=== PATIENT | female | born 1950 | race Caucasian/White ===

== ENCOUNTER 2017-06-22 04:41 | Inpatient (IN) | payer MEDICARE ==
[2017-06-22] MEDS ORDERED: NS 0.9% 1000 ML* 1,000 ML IV ONE (04:43)
[2017-06-22 05:17] LABS: Hematocrit 34 % (35-47); Hemoglobin 11.7 g/dl (12.0-16.0); Mean Corpuscular HGB Conc 35 g/dl (31-36); Mean Corpuscular Hemoglobin 31 pg (27-31); Mean Corpuscular Volume 89 fL (80-97); Mean Platelet Volume 12 um3 (7.4-10.4); Red Cell Distribution Width 13 % (10.5-15); White Blood Count 8.6 10^3/ul (3.5-10.8)
[2017-06-22 05:25] LABS: ALT 52 U/L (7-52); AST 42 U/L (13-39); Albumin 4.1 g/dL (3.2-5.2); Alkaline Phosphatase 337 U/L (34-104); Anion Gap 7 mmol/L (2-11); Blood Urea Nitrogen 28 mg/dL (6-24); CO2 Carbon Dioxide 32 mmol/L (22-32); Calcium 11.3 mg/dL (8.6-10.3); Chloride 94 mmol/L (101-111); Cholesterol 278 mg/dL; EGFR African American 62.8 (>60); EGFR Non-African American 48.8 (>60); Globulin 3.1 g/dL (2-4); Glucose 297 mg/dL (70-100); LDL Cholesterol 159 mg/dL; Potassium 4.5 mmol/L (3.5-5.0); Sodium 133 mmol/L (133-145); Total Protein 7.2 g/dL (6.4-8.9); Triglycerides 110 mg/dL
[2017-06-22 05:27] LABS: Troponin I 0.01 ng/mL (<0.04)
[2017-06-22] MEDS ORDERED: Labetalol IV* 5 MG/ML 20 ML VIAL IV PUSH ONE (05:45)
[2017-06-22] MEDS ORDERED: Dextrose 50% Syringe 50 ML* 25 GM/50 ML SYRINGE IV PUSH PRN (06:05)
--- NOTE | 2017-06-22 06:36 | ED ---
Kory Sequeira SooYoung, scribed for Raymundo Stevens MD on 06/22/17 at 0444 . Neurological HPI - HPI Summary HPI Summary: A 67 y/o F BIBA presents to ED with possible CVA. Last known normal according to pt is 0330. Last known nml per is yesterday at 2030. Pt states she went to use the bathroom at 0330, and she was on the commode straining to go, when she suddenly had L-sided weakness. Associated sx: slurred speech. Denies SERRA. PMHx: CVA with R sided deficits approx 4 years ago. Denies being on blood thinners. Per EMS, pt's blood sugars was 227. - History of Current Complaint Stated Complaint: STROKE LIKE SYMPTOMS Hx Obtained From: Patient, EMS Onset/Duration: Sudden Onset, Still Present Timing: Constant Current Severity: Moderate TPA Considered: Yes - but not a candidate - Allergy/Home Medications Allergies/Adverse Reactions: Allergies Allergy/AdvReac Type Severity Reaction Status Date / Time No Known Allergies Allergy Verified 06/22/17 06:08 PMH/Surg Hx/FS Hx/Imm Hx Previously Healthy: No Endocrine/Hematology History: Reports: Hx Diabetes Cardiovascular History: Reports: Hx Hypertension - ON MEDS GI History: Reports: Hx Gastroesophageal Reflux Disease, Other GI Disorders - HYPER PARATHYROIDISM History: Reports: Hx Kidney Stones - 6-7 YRS AGO Sensory History: Reports: Hx Cataracts - BILAT, Hx Contacts or Glasses, Hx Hearing Aid - DOES NOT USE Opthamlomology History: Reports: Hx Cataracts - BILAT, Hx Contacts or Glasses - Surgical History Surgery Procedure, Year, and Place: LITHOTRIPSY 6-7YRS AGO [place]. TONSILLECTOMY A CHILD. HYSTERECTOMY AT AGE 32 [place] Hx Anesthesia Reactions: No - Family History Known Family History: Positive: Other - neg: anaesthesia reaction - Social History Occupation: Retired Lives: With Family Alcohol Use: None Hx Substance Use: No Substance Use Type: Reports: None Hx Tobacco Use: No Smoking Status (MU): Never Smoked Tobacco Review of Systems Positive: Weakness, Slurred Speech. Negative: Headache All Other Systems Reviewed And Are Negative: Yes Physical Exam - Summary Physical Exam Summary: The patient is well-nourished in no acute distress and in no acute pain. The skin is warm and dry and skin color reflects adequate perfusion. HEENT: The head is normocephalic and atraumatic. No facial droop. The pupils are equal and reactive. EOMI. The conjunctivae are clear and without drainage. Nares are patent and without drainage. Mouth reveals moist mucous membranes and the throat is without erythema and exudate. The external ears are intact. The ear canals are patent and without drainage. The tympanic membranes are intact. Neck is supple with full range of motion and non-tender. There are no carotid bruits. There is no neck vein distension. Respiratory: Chest is non-tender. Lungs are clear to auscultation and breath sounds are symmetrical and equal. Cardiovascular: Hear is regular rate and rhythm. There is no murmur or rub auscultated. There is no peripheral edema and pulses are symmetrical and equal. Abdomen: The abdomen is soft and non-tender. There are normal bowel sounds heard in all four quadrants and there is no organomegaly palpated. Musculoskeletal: There is no back pain noted. Extremities are non-tender with full range of motion. There is good capillary refill. There is no peripheral edema or calf tenderness elicited. Neurological: Patient is alert and oriented to person, place and time. The patient has symmetrical motor strength in all four extremities. Cranial nerves are grossly intact. Deep tendon reflexes are symmetrical and equal in all four extremities. No pronator drift in UE. Pt had trouble with finger to nose on LUE. No pronator drift in LE. No trouble with heel to clark in either leg. More weakness in LLE compared to RLE. More weakness in LUE compared to RUE. Positive Babinski's sign. Visual acuity is intact. Psychiatric: The patient has an appropriate affect and does not exhibit any anxiety or depression. Triage Information Reviewed: Yes Vital Signs On Initial Exam: Initial Vitals Temp Pulse Resp BP Pulse Ox 98.5 F 87 16 186/82 98 06/22/17 04:41 06/22/17 04:41 06/22/17 04:41 06/22/17 04:41 06/22/17 04:41 Vital Signs Reviewed: Yes - William Coma Scale Glascow Coma Scale Comments: 15 Diagnostics - Vital Signs Vital Signs Temp Pulse Resp BP Pulse Ox 06/22/17 05:37 89 20 179/89 95 06/22/17 05:15 98.5 F 87 16 186/82 98 06/22/17 05:07 85 19 167/85 92 06/22/17 05:06 82 20 92 06/22/17 04:41 98.5 F 87 16 98 - Laboratory Lab Results: Lab Results 06/22/17 06/22/17 06/22/17 Range/Units 04:57 04:58 04:58 WBC 8.6 (3.5-10.8) 10^3/ul RBC 3.80 L (4.0-5.4) 10^6/ul Hgb 11.7 L (12.0-16.0) g/dl Hct 34 L (35-47) % MCV 89 (80-97) fL MCH 31 (27-31) pg MCHC 35 (31-36) g/dl RDW 13 (10.5-15) % Plt Count 216 (150-450) 10^3/ul MPV 12 H (7.4-10.4) um3 Neut % (Auto) 67.8 (38-83) % Lymph % (Auto) 23.5 L (25-47) % [place] % (Auto) 6.7 (1-9) % Eos % (Auto) 1.1 (0-6) % Baso % (Auto) 0.9 (0-2) % Absolute Neuts (auto) 5.8 (1.5-7.7) 10^3/ul Absolute Lymphs (auto) 2.0 (1.0-4.8) 10^3/ul Absolute Monos (auto) 0.6 (0-0.8) 10^3/ul Absolute Eos (auto) 0.1 (0-0.6) 10^3/ul Absolute Basos (auto) 0.1 (0-0.2) 10^3/ul Absolute Nucleated RBC 0.01 10^3/ul Nucleated RBC % 0.1 INR (Anticoag Therapy) 0.86 L (0.89-1.11) APTT 29.9 (26.0-36.3) seconds Sodium (133-145) mmol/L Potassium (3.5-5.0) mmol/L Chloride (101-111) mmol/L Carbon Dioxide (22-32) mmol/L Anion Gap (2-11) mmol/L BUN (6-24) mg/dL Creatinine (0.51-0.95) mg/dL Est GFR ( Amer) (>60) Est GFR (Non-Af Amer) (>60) BUN/Creatinine Ratio (8-20) Glucose (70-100) mg/dL POC Glucose (mg/dL) 270 H (70-100) mg/dL Lactic Acid (0.5-2.0) mmol/L Calcium (8.6-10.3) mg/dL Total Bilirubin (0.2-1.0) mg/dL AST (13-39) U/L ALT (7-52) U/L Alkaline Phosphatase (34-104) U/L Troponin I (<0.04) ng/mL Total Protein (6.4-8.9) g/dL Albumin (3.2-5.2) g/dL Globulin (2-4) g/dL Albumin/Globulin Ratio (1-3) Triglycerides mg/dL Cholesterol mg/dL LDL Cholesterol mg/dL HDL Cholesterol mg/dL Blood Type Antibody Screen 06/22/17 06/22/17 06/22/17 Range/Units 04:58 04:58 04:58 WBC (3.5-10.8) 10^3/ul RBC (4.0-5.4) 10^6/ul Hgb (12.0-16.0) g/dl Hct (35-47) % MCV (80-97) fL MCH (27-31) pg MCHC (31-36) g/dl RDW (10.5-15) % Plt Count (150-450) 10^3/ul MPV (7.4-10.4) um3 Neut % (Auto) (38-83) % Lymph % (Auto) (25-47) % [place] % (Auto) (1-9) % Eos % (Auto) (0-6) % Baso % (Auto) (0-2) % Absolute Neuts (auto) (1.5-7.7) 10^3/ul Absolute Lymphs (auto) (1.0-4.8) 10^3/ul Absolute Monos (auto) (0-0.8) 10^3/ul Absolute Eos (auto) (0-0.6) 10^3/ul Absolute Basos (auto) (0-0.2) 10^3/ul Absolute Nucleated RBC 10^3/ul Nucleated RBC % INR (Anticoag Therapy) (0.89-1.11) APTT (26.0-36.3) seconds Sodium 133 (133-145) mmol/L Potassium 4.5 (3.5-5.0) mmol/L Chloride 94 L (101-111) mmol/L Carbon Dioxide 32 (22-32) mmol/L Anion Gap 7 (2-11) mmol/L BUN 28 H (6-24) mg/dL Creatinine 1.12 H (0.51-0.95) mg/dL Est GFR ( Amer) 62.8 (>60) Est GFR (Non-Af Amer) 48.8 (>60) BUN/Creatinine Ratio 25.0 H (8-20) Glucose 297 H (70-100) mg/dL POC Glucose (mg/dL) (70-100) mg/dL Lactic Acid 1.3 (0.5-2.0) mmol/L Calcium 11.3 H (8.6-10.3) mg/dL Total Bilirubin 0.40 (0.2-1.0) mg/dL AST 42 H (13-39) U/L ALT 52 (7-52) U/L Alkaline Phosphatase 337 H (34-104) U/L Troponin I 0.01 (<0.04) ng/mL Total Protein 7.2 (6.4-8.9) g/dL Albumin 4.1 (3.2-5.2) g/dL Globulin 3.1 (2-4) g/dL Albumin/Globulin Ratio 1.3 (1-3) Triglycerides 110 mg/dL Cholesterol 278 mg/dL LDL Cholesterol 159 mg/dL HDL Cholesterol 97.0 mg/dL Blood Type O Positive Antibody Screen Negative Result Diagrams: 06/22/17 04:58 06/22/17 04:58 Lab Statement: Any lab studies that have been ordered have been reviewed, and results considered in the medical decision making process. - Radiology CXR Xray Interpretation: No Acute Changes - No PNA, no plueral , no PTX, no acute dz. Radiology Interpretation Completed By: ED Physician - CT BRAIN CT CT Interpretation: Positive (See Comments) - pending, see [facility] for full report CT Interpretation Completed By: Radiologist - EKG 0501 Cardiac Rate: NL - 79 bpm EKG Rhythm: Sinus Rhythm Ectopy: PACs - L axis EKG Interpretation: RBBB, no afib NIH Scale - NIH Scale Level of Consciousness: Alert/Keenly Responsive Ask Patient the Month and His/Her Age: Both Correct Ask Pt to Open/Close Eyes and Black Top Roller/Release Non-Paretic Hand: Both Correctly Best Gaze (Only Horizontal Eye Movement): Normal Visual Field Testing: No Visual Loss Facial Paresis-Pt to Smile & Close Eyes or Grimace Symmetry: Normal/Symmetrical Motor Function - Right Arm: No Drift-Holds 10 Seconds Motor Function - Left Arm: No Drift-Holds 10 Seconds Motor Function - Right Leg: No Drift-Holds 10 Seconds Motor Function - Left Leg: No Drift-Holds 10 Seconds Limb Ataxia-Must be out of Proportion to Weakness Present: Present in One Limb Sensory (Use Pinprick to Test Arms/Legs/Trunk/Face): Normal Best Language (Describe Picture, Name Items): Some Loss Dysarthria (Read Several Words): Slurs Some Words Extinction and Inattention: No Abnormality Total Score: 3 Course/Dx - Course Course Of Treatment: Pt is a 67 y/o F BIBA presenting with possible CVA. Last known normal according to pt is 0330. Last known nml per is yesterday at 2030. Pt states she went to use the bathroom at 0330, and she was on the commode straining to go, when she suddenly had L-sided weakness. Associated sx: slurred speech. Denies SERRA. PMHx: CVA with R-sided deficits approx 4 years ago. Denies being on blood thinners. Per EMS, pt's blood sugars was 227. EKG is NSR at 79 with RBBB, L axis, no afib, and PACs. - Differential Dx Differential Diagnoses Neuro: Positive: Cerebrovascular Accident, Dysrhythmia, Hypertension, Hypoglycemia, Intracranial Bleed, Other - renal insufficiency - Diagnoses Provider Diagnoses: Intracerebral bleed, Hypertension During the Visit The Following Alert/Code Occurred: Emily Arredondo - called at 0440 - Critical Care Time Critical Care Time: 30-74 min - 45 minutes Discharge - Discharge Plan Condition: Stable Disposition: ADMITTED TO [facility] Consult Consult: 0500: Contacted [facility] Will contact the Neurologist. Initiating telestroke. 0518: Using Telemed Does not think pt warrants transfer. Contact hospitalist for admission. 0548: Consult with Dr. Long, hospitalist Will accept pt for admission 0632: Spoke with [facility] transfer [place] Confirmed that pt will remain at [facility] for time. The documentation as recorded by the Kory vazquez SooYoung accurately reflects the service I personally performed and the decisions made by me, Raymundo Stevens MD.
[2017-06-22] MEDS ORDERED: Labetalol IV* 5 MG/ML 20 ML VIAL IV PUSH PRN ×4 (06:51→08:57)
--- NOTE | 2017-06-22 07:32 | RAD ---
INDICATION: Neurologic change. Code chacon COMPARISON: None TECHNIQUE: Noncontrast axial source images were acquired from the skull base to the vertex. FINDINGS: Ventricles/sulci: There is minor age-related cortical atrophy with compensatory dilatation of the CSF spaces. The basilar cisterns are widely patent. Brain parenchyma: There is a 1.3 x 1.3 cm focus of intraparenchymal hemorrhage in the right thalamus. This is likely secondary to a hypertensive hemorrhage although underlying hemorrhagic mass is not excluded. There is periventricular and subcortical white matter change compatible with chronic ischemia. Intracranial hemorrhage: As above, right colonic hemorrhage.. Extra-axial spaces: There are no abnormal extra axial fluid collections or evidence of extra-axial mass. Calvarium: There is no calvarial fracture or other calvarial abnormality. Scalp: There is no evidence of scalp or extracalvarial soft tissue abnormality. Paranasal sinuses/mastoid: Focal mucosal thickening left maxillary antrum. Other: None. IMPRESSION: 1.3 cm FOCUS of right thalamic hemorrhage.
--- NOTE | 2017-06-22 07:37 | RAD ---
INDICATION: Code chacon COMPARISON: None TECHNIQUE: An AP portable view obtained at 0508 hours is submitted. FINDINGS: Bones/Soft Tissues: There are no acute bony findings. Cardiomediastinal: The cardiomediastinal silhouette is normal. Lungs: There are no infiltrates. Pleura: There are no pleural effusions. Other: None IMPRESSION: NEGATIVE EXAMINATION.
[2017-06-22] MEDS ORDERED: Labetalol IV* 5 MG/ML 20 ML VIAL ONE (07:55)
[2017-06-22 08:06] LABS: Calcium (PTH Intact) 11.3 mg/dL (8.6-10.3)
--- NOTE | 2017-06-22 08:06 | PN ---
Subjective Date of Service: 06/22/17 Interval History: No new c/o. Patient and state her Left side was weak when she fell off the toilet at 3 AM today and couldn't get up, but she feels and looks stronger now. No head trauma, no headach. Some shaking when fell off the toilet. Objective Active Medications: Dextrose (D50w Syringe 50 Ml*) 12.5 gm IV PUSH .FOR FS < 60 - SS PRN PRN Reason: FS < 60 Sodium Chloride (Ns 0.9% 1000 Ml*) 1,000 mls @ 60 mls/hr IV .PER RATE GLORIA Insulin Human Lispro (Humalog*) 0 units SUBCUT Q6HR GLORIA PRN Reason: Protocol Labetalol HCl (Trandate Iv*) 10 mg IV PUSH Q3H PRN PRN Reason: BLOOD PRESSURE Vital Signs 06/22/17 06/22/17 06/22/17 06:10 06:15 06:22 Temperature Pulse Rate 74 73 72 Respiratory 20 15 16 Rate Blood Pressure 169/155 144/72 140/73 (mmHg) O2 Sat by Pulse 93 96 94 Oximetry 06/22/17 06/22/17 06/22/17 06:30 06:43 06:45 Temperature 98.8 F Pulse Rate 72 70 Respiratory 16 16 Rate Blood Pressure 131/87 160/95 163/99 (mmHg) O2 Sat by Pulse 98 100 Oximetry 06/22/17 06/22/17 06/22/17 06:59 07:03 07:07 Temperature 97.4 F Pulse Rate 72 71 Respiratory 18 19 28 Rate Blood Pressure 132/87 160/95 (mmHg) O2 Sat by Pulse 100 Oximetry Oxygen Devices in Use Now: None Appearance: Alert, partly up in ICU bed. In fair spirits. Looks comfortable. Eyes: No Scleral Icterus Ears/Nose/Mouth/Throat: Clear Oropharnyx, Mucous Membranes Moist Neck: NL Appearance and Movements; NL JVP, No Thyroid Enlargement, Masses Respiratory: Symmetrical Chest Expansion and Respiratory Effort, Clear to Auscultation, Clear to Percussion Cardiovascular: NL Sounds; No Murmurs; No JVD, RRR, No Edema, - Abdominal: NL Sounds; No Tenderness; No Distention, No Hepatosplenomegaly, - Extremities: No Edema, No Clubbing, Cyanosis, - Skin: No Rash or Ulcers, No Nodules or Sclerosis, - Neurological: Alert and Oriented x 3, NL Sensation - Senior Sales Manager 4+/5 BL, foot dorsiflexion 4+/5 BL. No tremor. Speech clear and fluent. Result Diagrams: 06/22/17 04:58 06/22/17 04:58 Additional Lab and Data: Lab Results 06/22/17 06/22/17 06/22/17 Range/Units 04:57 04:58 04:58 WBC 8.6 (3.5-10.8) 10^3/ul RBC 3.80 L (4.0-5.4) 10^6/ul Hgb 11.7 L (12.0-16.0) g/dl Hct 34 L (35-47) % MCV 89 (80-97) fL MCH 31 (27-31) pg MCHC 35 (31-36) g/dl RDW 13 (10.5-15) % Plt Count 216 (150-450) 10^3/ul MPV 12 H (7.4-10.4) um3 Neut % (Auto) 67.8 (38-83) % Lymph % (Auto) 23.5 L (25-47) % [place] % (Auto) 6.7 (1-9) % Eos % (Auto) 1.1 (0-6) % Baso % (Auto) 0.9 (0-2) % Absolute Neuts (auto) 5.8 (1.5-7.7) 10^3/ul Absolute Lymphs (auto) 2.0 (1.0-4.8) 10^3/ul Absolute Monos (auto) 0.6 (0-0.8) 10^3/ul Absolute Eos (auto) 0.1 (0-0.6) 10^3/ul Absolute Basos (auto) 0.1 (0-0.2) 10^3/ul Absolute Nucleated RBC 0.01 10^3/ul Nucleated RBC % 0.1 INR (Anticoag Therapy) 0.86 L (0.89-1.11) APTT 29.9 (26.0-36.3) seconds Sodium (133-145) mmol/L Potassium (3.5-5.0) mmol/L Chloride (101-111) mmol/L Carbon Dioxide (22-32) mmol/L Anion Gap (2-11) mmol/L BUN (6-24) mg/dL Creatinine (0.51-0.95) mg/dL Est GFR ( Amer) (>60) Est GFR (Non-Af Amer) (>60) BUN/Creatinine Ratio (8-20) Glucose (70-100) mg/dL POC Glucose (mg/dL) 270 H (70-100) mg/dL Lactic Acid (0.5-2.0) mmol/L Calcium (8.6-10.3) mg/dL Total Bilirubin (0.2-1.0) mg/dL AST (13-39) U/L ALT (7-52) U/L Alkaline Phosphatase (34-104) U/L Troponin I (<0.04) ng/mL Total Protein (6.4-8.9) g/dL Albumin (3.2-5.2) g/dL Globulin (2-4) g/dL Albumin/Globulin Ratio (1-3) Triglycerides mg/dL Cholesterol mg/dL LDL Cholesterol mg/dL HDL Cholesterol mg/dL Blood Type Antibody Screen 06/22/17 06/22/17 06/22/17 Range/Units 04:58 04:58 04:58 WBC (3.5-10.8) 10^3/ul RBC (4.0-5.4) 10^6/ul Hgb (12.0-16.0) g/dl Hct (35-47) % MCV (80-97) fL MCH (27-31) pg MCHC (31-36) g/dl RDW (10.5-15) % Plt Count (150-450) 10^3/ul MPV (7.4-10.4) um3 Neut % (Auto) (38-83) % Lymph % (Auto) (25-47) % [place] % (Auto) (1-9) % Eos % (Auto) (0-6) % Baso % (Auto) (0-2) % Absolute Neuts (auto) (1.5-7.7) 10^3/ul Absolute Lymphs (auto) (1.0-4.8) 10^3/ul Absolute Monos (auto) (0-0.8) 10^3/ul Absolute Eos (auto) (0-0.6) 10^3/ul Absolute Basos (auto) (0-0.2) 10^3/ul Absolute Nucleated RBC 10^3/ul Nucleated RBC % INR (Anticoag Therapy) (0.89-1.11) APTT (26.0-36.3) seconds Sodium 133 (133-145) mmol/L Potassium 4.5 (3.5-5.0) mmol/L Chloride 94 L (101-111) mmol/L Carbon Dioxide 32 (22-32) mmol/L Anion Gap 7 (2-11) mmol/L BUN 28 H (6-24) mg/dL Creatinine 1.12 H (0.51-0.95) mg/dL Est GFR ( Amer) 62.8 (>60) Est GFR (Non-Af Amer) 48.8 (>60) BUN/Creatinine Ratio 25.0 H (8-20) Glucose 297 H (70-100) mg/dL POC Glucose (mg/dL) (70-100) mg/dL Lactic Acid 1.3 (0.5-2.0) mmol/L Calcium 11.3 H (8.6-10.3) mg/dL Total Bilirubin 0.40 (0.2-1.0) mg/dL AST 42 H (13-39) U/L ALT 52 (7-52) U/L Alkaline Phosphatase 337 H (34-104) U/L Troponin I 0.01 (<0.04) ng/mL Total Protein 7.2 (6.4-8.9) g/dL Albumin 4.1 (3.2-5.2) g/dL Globulin 3.1 (2-4) g/dL Albumin/Globulin Ratio 1.3 (1-3) Triglycerides 110 mg/dL Cholesterol 278 mg/dL LDL Cholesterol 159 mg/dL HDL Cholesterol 97.0 mg/dL Blood Type O Positive Antibody Screen Negative Assess/Plan/Problems-Billing Assessment: - Patient Problems (1) Hemorrhagic stroke Current Visit: Yes Status: Acute Code(s): I61.9 - NONTRAUMATIC INTRACEREBRAL HEMORRHAGE, UNSPECIFIED SNOMED Code(s): 151389529 Comment: R ICH hemorrhage. Old L cerebral CVA by hx. Uses cane at home. OT /PT. Nurse swallow eval. I spoke with Dr. Nicole about pt 06/22. Start ASA Day [address] Nicole. Normalize BP as goal. Repeat CT brain 06/23. (2) Diabetes Current Visit: Yes Status: Acute Code(s): E11.9 - TYPE 2 DIABETES MELLITUS WITHOUT COMPLICATIONS SNOMED Code(s): 91811607 Comment: Start glipizide. Continue Lispro by SS. Cons carb diet if no intervention planned. May add metformin later. (3) HTN (hypertension) Current Visit: Yes Status: Acute Code(s): I10 - ESSENTIAL (PRIMARY) HYPERTENSION SNOMED Code(s): 97257649 Comment: IV labetalol PRN systolic >140. Start lisinopril soon. (4) Constipation Current Visit: Yes Status: Acute Code(s): K59.00 - CONSTIPATION, UNSPECIFIED SNOMED Code(s): 50917328 Comment: MOM 60 ml 06/22, start PEG 17 gm hs 06/22.
[2017-06-22] MEDS ORDERED: Magnesium Hydroxide LIQ* 30 ML UDC PO ONE (09:00)
[2017-06-22] MEDS ORDERED: Insulin LISPRO* 1 UNITS UNIT SUBCUT ONE (09:40)
[2017-06-22] MEDS: Insulin LISPRO* 1 UNITS UNIT SUBCUT SCH ×4 (09:42→22:48)
[2017-06-22] MEDS: Lisinopril TAB* 5 MG PO SCH (09:43)
[2017-06-22] MEDS ORDERED: Iodixanol* (CONTRAST) 320 MG/ML 100 ML SDV IV ONE (10:31)
--- NOTE | 2017-06-22 10:34 | HP ---
CC: Emilia Urbina, ORTHODONTIC ASSISTANT, in [place]; Dr. Nicole, Neurology, [place] ADMISSION HISTORY AND PHYSICAL: DATE OF ADMISSION: 06/22/17 CHIEF COMPLAINT: Left-sided weakness. HISTORY OF PRESENT ILLNESS: Ms. Cortes is a 67-year-old woman with history of stroke with right-sided weakness, who got to the bathroom at night around 3:30 a.m. and noticed the loss of control of her left arm. This seemed to worsen while she was in the bathroom and she slipped off the toilet and fell on the floor. She was able to summon her who brought her back to bed, partly carrying her and partly helping her. She now states that mainly her left arm is weak and that her speech is not normal, but denies left leg weakness. She denies any headache. She says she has no word finding difficulties, but she just has trouble forming words in her mouth. Her agrees that her speech is much slower and less distinct than usual. She also has some numbness on the left side of her body. The patient was brought from [facility] to [facility] on account of suspicion of stroke. She was seen by Teleneurology, who reviewed a CT scan of the brain that showed 2 cm hemorrhagic right thalamic lesion. She was advised to be admitted to the hospital and I was asked to see the patient about this. PAST MEDICAL HISTORY: The patient has history of a left thalamic stroke with right- sided weakness in 2012. She also has macular degeneration, diabetes, with retinopathy, and hypertension. She states she does not take any of her blood pressure, diabetes or other medications, but she cannot say why. PAST SURGICAL HISTORY: Hysterectomy in the past, cataracts bilaterally, and tonsillectomy. MEDICATIONS ON ADMISSION: Her previous medication list included: 1. Aggrenox twice a day. 2. Calcium once a day. 3. Zetia 10 mg daily. 4. Gemfibrozil 600 mg b.i.d. 5. Hydralazine 25 mg p.o. 4 times a day. 6. Metformin 850 t.i.d. 7. Multivitamin. 8. Omeprazole 20 mg p.o. daily, but she states she is not taking any of her medications. ALLERGIES: None. FAMILY HISTORY: Family history is notable for father of CHF, mother of head injury. Her sister is alive and has Parkinson's disease. 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 She is , she has 1 adopted child. She never smoked, she does not drink alcohol or use any recreational drugs. REVIEW OF SYSTEMS: The patient denies any fevers, weight loss or anorexia. The patient denies any chest pain or palpitations. The patient denies any cough, hemoptysis or shortness of breath. The patient denies any nausea, vomiting, diarrhea, constipation or abdominal pain. Remainder of her 14-point review of systems is negative other than that mentioned in the HPI. PHYSICAL EXAMINATION GENERAL: She is alert, in no acute distress. VITAL SIGNS: Temperature is 36.9, pulse 89, respirations 20, blood pressure 179 /89, O2 sat is 95%. HEENT: Head is normocephalic, atraumatic. Sclerae anicteric. Pupils are equal , round and reactive to light and accommodation. Oropharynx is moist, no lesions. NECK: No carotid bruit. No JVD. No thyromegaly. LUNGS: Clear to auscultation and percussion bilaterally. HEART: Regular rate and rhythm, without murmurs or gallops. ABDOMEN: Soft, nontender. Positive bowel sounds. No hepatosplenomegaly. EXTREMITIES: No peripheral edema. NEUROLOGIC: Cranial nerves II through XII are intact. Her speech is slow and she is mildly dysarthric. Her deep tendon reflexes are 1+ and symmetric in the upper and lower extremities. She has weakness in her left arm, rated at 4+/5, and she has pronator drift on the left. She does not have left-sided neglect. Sensation is intact to light touch. She is alert and oriented x3. SKIN: No rashes. No lesions. LABORATORY DATA: Sodium 133, potassium 4.5, chloride 94, bicarbonate 32, BUN 28, creatinine 1.12, glucose 297, calcium 11.3. Lactic acid 1.3. Albumin 4.1, AST 42, ALT 52, bilirubin 0.4. Troponin 0.01. INR 0.86, PTT 29.9. White count 8.6, hemoglobin 11.7, hematocrit 34%, and platelets are 216. EKG shows normal sinus rhythm, leftward axis, incomplete right bundle branch block with left anterior fascicular block. No ischemic ST or T-wave changes. Chest x-ray is negative for infiltrates or effusions. Head CT shows 2 cm hemorrhagic infarct in the right thalamus. ASSESSMENT AND PLAN: A 67-year-old woman with right thalamic hemorrhagic stroke. The patient has risk of progression of this hemorrhage with more severe deficits. At this time, she will be admitted to the intensive care unit. We will attempt to control her blood pressure with IV labetalol on a p.r.n. basis, which we can convert to drip if necessary. We will also continue nicardipine or IV hydralazine if the blood pressure control is not obtainable. The patient will have repeat head CT in 6 hours and we will consult with Dr. Nicole of neurology for further management. I am not restarting antiplatelet or blood pressure medications as she has not been taking them at home and she certainly does not need to be on Aggrenox at this time. For diabetes, we will start her on q.6 hour fingersticks because we are keeping her n.p.o. until she has swallowing evaluation. For her hypercalcemia, this appears to be a new finding. This could represent hyperparathyroidism or malignancy. The patient will have PTH and vitamin D to assess calcium further, and I will repeat the calcium with ionized calcium tomorrow. Code status is full. DVT prophylaxis will be with sequential compression devices only due to her hemorrhagic stroke. She is a high risk of DVT, but SCDs are the only thing that are safe for her. [id number]/[facility] #: [id number] MTDD
[2017-06-22] MEDS: glipiZIDE TAB* 5 MG PO SCH (11:15)
--- NOTE | 2017-06-22 11:32 | RAD ---
INDICATION: Intracerebral hemorrhage COMPARISON: CT brain same date TECHNIQUE: Axial source images were acquired with coronal and sagittal reconstructions. CT angiographic technique was utilized with injection of 80 mL Visipaque 320. FINDINGS: Aortic arch: There are no CT angiogram abnormalities of the arch or the great vessels arising from the arch. Right carotid: The right common carotid artery is widely patent. There is moderate calcific plaque at the bifurcation with a 70% diameter stenosis. The remaining extracranial portions of the internal carotid artery, carotid artery at the skull base, carotid siphon, and carotid termination otherwise are widely patent. There are mild intimal calcifications of the carotids siphon. Left carotid:The common carotid artery, carotid bifurcation, extracranial portions of the internal carotid artery, carotid artery at the skull base, carotid siphon, and carotid termination appear normal. Right middle and anterior cerebral arteries: There are no CT angiographic abnormalities of the middle or anterior cerebral arteries. Left middle and anterior cerebral arteries: There are no CT angiographic abnormalities of the middle or anterior cerebral arteries Right vertebral: The CT angiographic appearance of the vertebral artery is normal. Left vertebral: The CT angiographic appearance of the vertebral artery is normal. Basilar artery: The basilar artery and basilar tip appear normal. Posterior cerebral arteries: The distal distribution of the right and left posterior cerebral arteries is normal. [place] of [place]: The CT angiographic appearance of the [place] of [place] is normal. Source images show no evidence of mass or adenopathy within the neck. There is a 1.3 cm focus of right thalamic hemorrhage with a small amount of adjacent edema. There is no abnormal parenchymal enhancement. Or evidence of adjacent abnormal vascularity. There is bilateral maxillary antral sinus disease IMPRESSION: 1. 70% diameter stenosis right internal carotid artery. 2. No evidence of aneurysm, vascular formation, or abnormal enhancement in the immediate period following right thalamic hemorrhage. 3. 1.3 cm focus of right thalamic hemorrhage ,CPT II Codes: 3100F RS
--- NOTE | 2017-06-22 11:40 | CONS ---
CONSULTATION REPORT: DATE OF CONSULT: 06/22/17 LOCATION: The patient is in bed 9 in the ICU. REASON FOR CONSULTATION: Left-sided weakness and intracerebral hemorrhage. HISTORY OF PRESENT ILLNESS: Ms. Cortes is a 67-year-old female with multiple stroke risk factors including a prior stroke 4 years ago with some residual right-sided weakness, hypertension, hyperlipidemia, diabetes who by her own admission has been not taking her medications for sometime. She was put on Aggrenox after her last stroke, but stopped talking it because the "pills were too big." She denies any current dysphagia. This morning at around 3 a.m. she had to go to the bathroom, she was sitting on the toilet straining, when she suddenly felt "weird." She subsequently fell off the toilet, but did not hit her head, did not lose consciousness. She denies any significant headache, nausea, vomiting, vision changes. She does note some constipation, but otherwise is having no pain. At that time, she noted that she was having some left-sided weakness and some numbness in her left hand. She subsequently was brought to the ER and a CT scan was done, which showed a 1.3 cm right thalamic hemorrhage and she was admitted to the ICU for further workup. She denies any history of smoking. She rarely drinks. She denies any right-sided symptoms, although she does have some baseline right weakness. She has had no problems expressing herself, although she does have some slurred speech which her states is new for her from her baseline. She notes that she has not been taking her medications, but is unclear what her blood pressures are. I did speak with her primary physician this morning and she has been given labetalol x1 for elevated blood pressures. PAST MEDICAL HISTORY: As above. PAST SURGICAL HISTORY: As above. ALLERGIES: No known drug allergies on drug allergies. MEDICATIONS: Her medications currently include: 1. Glipizide 5 mg daily. 2. Insulin. 3. Labetalol 10 mg every 1 hour p.r.n. systolic blood pressure greater than 160. 4. Lisinopril 2.5 mg daily. 5. MiraLAX. 6. Normal saline. Her admission medications, she was not taking any, per her report. FAMILY HISTORY: No history of strokes or heart attacks. No history of early . SOCIAL HISTORY: As above. No tobacco. Rare alcohol use. Her does smoke, so she has secondary exposure. No drug use reported. REVIEW OF SYSTEMS: In 14-organ systems was done. She denies any headache, nausea, vomiting, diarrhea. She does endorse constipation. Denies any chest pain, shortness of breath, dyspnea on exertion. Denies any skin changes, rashes , or lesions. She does note some fatigue. Denies any fevers, chills. She denies any musculoskeletal aches or pains. Neuro pertinent positives are listed above. She denies any vision changes or eye pain. She denies any sore throat or swallowing issues. No recent infections. No genitourinary symptoms including dysuria, frequency, urgency. No depression or anxiety noted. Her review of systems is otherwise negative. PHYSICAL EXAM: Vital Signs: Blood pressure 163/99 to 132/87 to 160/95. General: She is a well nourished, well developed female, in no acute distress. She is lying in hospital bed. She is somewhat uncomfortable because she states that she is constipated. HEENT: She is normocephalic, atraumatic. Sclerae anicteric. Mucous membranes are moist. Oropharynx is clear. Nares patent. Neck: Supple. No thyromegaly. No carotid bruits. Chest: Clear to auscultation bilaterally. Cardiovascular: Regular rate and rhythm. Abdomen: Soft, nontender. Extremities: No clubbing, cyanosis, or edema. Neurologic Exam : She is awake, alert, oriented x3. Her speech is fluent and there is some mild dysarthria. She has difficulty with the "KA, TA, PA, LA" sounds. Cranial nerves II through XII are intact. Her visual roper are intact. Pupils are equal, round, and reactive. Face is symmetric. Sensation is intact. Her tongue is midline. Palate elevates symmetrically. Sternocleidomastoid and shoulder shrug are both normal. Extraocular muscles are intact. Her face is symmetric. Motor Exam: She spontaneously moves her all extremities antigravity. She does have some mild drift in the left upper extremity. No drift in the left lower extremity or right side. In general, she is 4+/5 throughout. She has some mild weakness in the right proximal arm. DTRs are 3+ on the right, 2+ on the left with withdrawal Babinski. Xljlzi-se-pdfc and rapid alternating movements are more difficult on the left, but no obvious ataxia. Hvcb-ah-bnom is same. She has a mild end point tremor bilaterally. Sensation she states is diminished by 10% to 15% in the left hand otherwise to light touch , pinprick. She has a some vibration and proprioception loss in her feet bilaterally and symmetric. Gait was not tested at this time and she feels unsteady and is currently in some discomfort because of her constipation. DIAGNOSTIC STUDIES/LAB DATA: Lab work includes a CBC with hemoglobin of 11.7, hematocrit of 34, lymphocytes are 23.5. INR of 0.86, PTT of 29.9. Complete metabolic panel significant for creatinine of 1.12, glucose of 297, calcium of 11.3, AST of 42, alkaline phosphatase of 337, vitamin D of 13.2. LDL of 159, HDL of 97, calcium of 11.3. IMAGING: As noted above. Chest x-ray shows negative exam. I did review the CT films as well. ASSESSMENT AND PLAN: Ms. Cortes is a 67-year-old female with multiple stroke risk factors, a history of stroke in the past with some residual right-sided weakness , presents to the hospital with acute onset of left-sided weakness, numbness in the hand. CT shows a 1.3 cm right thalamic hemorrhage. At this point, she is currently in the ICU. The plan is as follows: 1. Hold all aspirin or anticoagulants for at least 1 week after initial onset. 2. I would strive for a systolic blood pressure between 140 to 160 and diastolic blood pressure no greater than 95. Labetalol p.r.n. has been ordered. I will check some additional labs including TSH, free T4, homocysteine , KATHARINE to rule out reversible causes of stroke. 3. Her LDL is currently elevated, would consider statin on discharge to lower the HDL alf. At this point, I would not complicate the picture with the statin given her recent hemorrhage, but we can start simvastatin or Crestor on discharge. 4. She is currently awaiting a swallowing study. If that is negative, she can have diet advanced as tolerated. I do not see any evidence of dysphagia at this point. We can get speech therapy tomorrow. 5. Tight control of her diabetes during hospitalization, restart medications. 6. DVT prophylaxis with SCDs only. 7. I had a long discussion with the patient about the need to take her medications and for compliance. 8. MiraLAX for stool softener. She is suffering from constipation. We will watch her blood pressures with this and treat accordingly. I will continue to follow her closely. I would continue her monitoring in the ICU for now. We will plan to get a CT scan in the morning for follow up or if her condition should change. Thank you for the opportunity to participate in her care. [id number]/[facility] #: [id number] [place]
[2017-06-22 15:52] LABS: Free T4 1.12 ng/dL (0.61-1.12)
[2017-06-22 16:00] LABS: Folate > 20.00 ng/mL (>3.99)
[2017-06-22 16:01] LABS: Vitamin B12 259 pg/mL (180-914)
[2017-06-22] MEDS: Polyethylene Glycol 3350* 17 GM PACKET PO SCH (22:24)
[2017-06-22] MEDS: NS 0.9% 1000 ML* 1,000 ML IV SCH (22:26)
[2017-06-23 05:36] LABS: Hematocrit 28 % (35-47); Hemoglobin 9.6 g/dl (12.0-16.0); Mean Corpuscular HGB Conc 34 g/dl (31-36); Mean Corpuscular Hemoglobin 31 pg (27-31); Mean Corpuscular Volume 90 fL (80-97); Mean Platelet Volume 12 um3 (7.4-10.4); Red Blood Count 3.15 10^6/ul (4.0-5.4); Red Cell Distribution Width 13 % (10.5-15); White Blood Count 10.1 10^3/ul (3.5-10.8)
[2017-06-23 05:57] LABS: BUN/Creatinine Ratio 24.6 (8-20); EGFR African American 61.5 (>60); EGFR Non-African American 47.8 (>60)
[2017-06-23] MEDS ORDERED: Cyanocobalamin INJ * 1,000 MCG/ML VIAL 1 ML VIAL IM ONE (07:41)
[2017-06-23 08:10] LABS: TSH (Thyroid Stimulating Horm) 1.45 mcIU/mL (0.34-5.60)
[2017-06-23 08:15] LABS: Free T4 1.19 ng/dL (0.61-1.12)
[2017-06-23 08:23] LABS: Folate > 20.00 ng/mL (>3.99)
[2017-06-23 08:24] LABS: Vitamin B12 186 pg/mL (180-914)
--- NOTE | 2017-06-23 08:34 | RAD ---
INDICATION: Follow-up right thalamic hemorrhage COMPARISON: Similar CT dated June 22, 2017 TECHNIQUE: Contiguous axial sections of the brain were obtained from the skull base to the vertex without contrast. FINDINGS: Again seen at the right thalamus is a 1 x 1.1 cm hyperdense focus (image 15 of 32), previously 1 x 1.1 cm. There is a faintly lucent rim circling this hyperdense focus. There is mild periventricular and subcortical white matter hypoattenuation similar in appearance to the previous CT examination. Otherwise the the chacon-white matter differentiation is adequately maintained. Incidental note is made of mild hyperostosis frontalis interna. There are inspissated secretions in the bilateral maxillary sinuses. The remaining paranasal sinuses are adequately aerated. The mastoid air cells are well-aerated. IMPRESSION: There is no change in the hyperdense focus identified at the right thalamus most consistent with intraparenchymal hemorrhage. A less likely diagnostic consideration would be a metastatic focus. As clinically warranted, further characterization can be made with MRI of the brain.
[2017-06-23] MEDS: Lisinopril TAB* 5 MG PO SCH (09:49)
[2017-06-23] MEDS: Insulin LISPRO* 1 UNITS UNIT SUBCUT SCH ×4 (09:50→20:04)
--- NOTE | 2017-06-23 10:39 | PN ---
PROGRESS NOTE: DATE OF PROGRESS NOTE: 06/23/17 LOCATION: She is currently in ICU bed 9. Overnight she did well. The nurse overnight felt that she was stable and may have improved some. S he is tolerating her diet without difficulty. She has been moving all extremities. She had 2 large bowel movements yesterday and since that time feels much better. She notes no new neurologic sympt oms overnight. Her blood pressures were on the lower end yesterday, in the 90s to 130s systolic. Vital Signs: Pulse in the 80s, respiratory rate 14 to 26, O2 sats in the mid to upper 90s, blood pr essure 112/60 to 122/64, temperature is 98.2. She has been afebrile. In general, she is a well-nou rished, well-developed female. She is lying in her hospital bed. She is pleasant. HEENT: She is normocephalic, atraumatic. Sclerae are anicteric. Mucous membranes are moist. Oropharynx clear. C hest: Clear to auscultation bilaterally. Cardiovascular: Regular rate and rhythm. Abdomen: Nont marla. Extremities: No edema. Neurologic Exam: She is awake, alert, oriented x3. Speech is flue nt. There is some dysarthria noted, unchanged. Cranial Nerves: Her visual roper are full. Extra ocular muscles are intact. No diplopia. Face is symmetric. Sensation is intact. Tongue is midlin e. Palate rises symmetrically. Sternocleidomastoid and shoulder shrug are both normal. Pupils are equal, round, and reactive to light. She is spontaneously moving all extremities. There is a mild drift in the left upper extremity. In general, she has a good strength, 4+/5, symmetric bilaterally . She does note subjective weakness on the right side more than the left side. Sensation: The num bness in her left hand remains difficult to quantify, but slightly better per the patient; otherwise no loss of sensation in her arms. She has some stocking loss of light touch pinprick in her feet b ilaterally, unchanged. Jauyjz-ai-frsh and rapid alternating movements are intact. DTRs are 2+ on t he left and 3+ on the right. Upper extremities are 2+ on the left, 2+ on the right lower extremiti es, with withdrawal Babinski. Gait was not tested. Overnight lab work, hemoglobin of 9.6, hematocrit of 28, WBC of 10.1, platelet count of 177. Chlori de of 100, sodium of 134, potassium of 4.0, BUN of 28, creatinine of 1.14. Blood sugars have range d from 351 to 249 to 214 to 165. Calcium is 9.0. B12 of 259. TSH is 4.90, free T4 of 1.12. MRSA n egative. Head CTA done overnight shows 70% diameter stenosis in the right internal carotid artery, no evidenc e of aneurysm, vascular malformation, or abnormal enhancement in the immediate period following the thalamic hemorrhage, 1.3 cm focus of right thalamic hemorrhage. She is scheduled for a CT of the he ad this morning. Followup physical therapy and occupational therapy are planned. ASSESSMENT AND PLAN: 1. Ms. Cortes is a 67-year-old female admitted with a thalamic hemorrhage, stabl e overnight. She has been doing well. We have been trying to keep her blood pressures normalized to slightly high, 130s to 160s systolic. Overall she has been within those parameters. I suspect th at her hemorrhage is likely related to a spike in blood pressure as well as the fact that she was st raining on the toilet. At this point, I will continue ICU monitoring. 2. We will repeat CT of the head to look for any changes. 3. Hold aspirin or any anticoagulant for 1 week after the event. 4. PT/OT. 5. Speech Therapy to see. She is currently on a modified diet. 6. We will supplement her B12. It is low normal. 7. Start statin on discharge, Crestor or simvastatin. 8. Continue MiraLAX for stool softener. 9. Check echocardiogram. 10. We will monitor in the ICU for now, can consider transfer to the floor later today or tomorrow if stable. [id number]/[facility] #: [id number]
[2017-06-23] MEDS: NS 0.9% 1000 ML* 1,000 ML IV SCH (11:19)
[2017-06-23] MEDS: glipiZIDE TAB* 5 MG PO SCH (11:55)
--- NOTE | 2017-06-23 14:09 | ECHO ---
Patient: KACY GOODE [facility] Rec#: [id number] : 1950 Date: 06/23/2017 Age: 67y Height: 147.32 cm / 58.0 in Weight: 48.99 kg / 108.0 lbs Sex: F BSA: 1.4 Room#: ICU 9 Admit Date#: 06/22/2017 Type: Inpatient Referring: Brenden Nicole Reading: Andi Ding MD [place] Specialists: Jordana Young RDCS,RDMS Transthoracic Echocardiogram Indication: CVA BP: 122/64 HR: 88 Rhythm: NSR Findings History: CVA, HTN, DM Technical Comments: The study quality is good. Completed 1025 Left Ventricle: The left ventricular chamber size is normal. There is no left ventricular hypertrophy. There is a focal wall motion abnormality present. There is moderately decreased left ventricular systolic function. The estimated ejection fraction is 35-40%. There is no consistent Doppler evidence of clinically significant diastolic dysfunction. The mid anterior, and apical inferior wall segments are hypokinetic (score 2). The apical anterior wall segment is akinetic (score 3). Overall wallmotion score index is 2.33 No thrombus is visualized within the left ventricle. Left Atrium: The left atrial chamber size is normal. Right Ventricle: The right ventricle wall thickness is mildly increased. The right ventricular cavity size is normal. The right ventricular global systolic function is hyperdynamic. Right Atrium: The right atrial cavity size is normal. Aortic Valve: The aortic valve is trileaflet. The aortic valve leaflets are mildly thickened. Systolic excursion of the aortic valve is normal. There is no evidence of aortic regurgitation. There is no evidence of aortic stenosis. Mitral Valve: There is mitral annular calcification. The mitral valve leaflets are mildly thickened. There is mild mitral regurgitation. There is no evidence of mitral stenosis. Tricuspid Valve: The tricuspid valve leaflets are normal. There is mild to moderate tricuspid regurgitation. There is evidence of mild to moderate pulmonary hypertension. Pulmonic Valve: There is no evidence of pulmonic valve thickening. There is mild pulmonic regurgitation. Pericardium: There is no significant pericardial effusion. Aorta: The aortic root appears normal. There is no dilatation of the aortic arch. Pulmonary Artery: The main pulmonary artery is not well visualized. Venous: The inferior vena cava appears normal in size. There is a greater than 50% respiratory change in the inferior vena cava dimension. Summary: There was not any prior study for comparison. Conclusions There is moderately decreased left ventricular systolic function. The estimated ejection fraction is 35-40%. There is a focal wall motion abnormality present. The mid anterior, and apical inferior wall segments are hypokinetic (score 2). The apical anterior wall segment is akinetic (score 3). There is no evidence of aortic stenosis. There is mild mitral regurgitation. There is mild to moderate tricuspid regurgitation. There is evidence of mild to moderate pulmonary hypertension. There is no significant pericardial effusion. Measurements Name Value Normal Range RVIDd (AP) 2D 2 cm (0.9 - 2.6) RVDdMajor (2D) 2.9 cm (2.2 - 4.4) RAd ISD 4CH 3.6 cm (3.4 - 4.9) RA (A4C)W 3.2 cm (2.9 - 4.6) IVSd (2D) 0.9 cm (0.6 - 1) LVPWd (2D) 0.9 cm (0.6 - 1) LVIDd (2D) 4.1 cm (3.6 - 5.4) LVIDs (2D) 3.1 cm - LV FS (2D) 24 % (25 - 45) Aortic Annulus 1.8 cm (1.4 - 2.6) Ao root diameter (2D) 2.5 cm (2.1 - 3.5) Ascending Ao 2.4 cm (2.1 - 3.4) Aortic arch 2.2 cm (1.8 - 3.4) LA dimension (AP) 2D 3.7 cm (2.3 - 3.8) LAd ISD 4CH 5 cm (2.9 - 5.3) LA ISD 4CH W 3.1 cm (2.5 - 4.5) Name Value Normal Range LA ESV SP 4CH (A/L) 25.01 ml - LA ESV SP 2CH (A/L) 46.78 ml - LA ESV BP (A/L) 34.84 ml - LA ESV BP (A/L) index 25 ml/m2 - LA ESV SP 4CH (MOD) 24.52 ml - LA ESV SP 2CH (MOD) 43.69 ml - Name Value Normal Range MV E-wave Vmax 1 m/sec - MV deceleration time 138 msec - MV A-wave Vmax 0.6 m/sec - MV E:A ratio 1.7 ratio - LV septal e' Vmax 0.04 m/sec - LV lateral e' Vmax 0.06 m/sec - LV E:e' septal ratio 25 ratio - LV E:e' lateral ratio 17 ratio - Name Value Normal Range AV Vmax 1.2 m/sec - AV VTI 23 cm - AV peak gradient 6 mmHg - AV mean gradient 3.4 mmHg - LVOT Vmax 0.9 m/sec - LVOT VTI 17 cm - LVOT peak gradient 3.2 mmHg - LVOT mean gradient 1.8 mmHg - MARIN Vmax 0.4 m/sec - Name Value Normal Range MR Vmax 4.8 m/sec - MR VTI 140 cm - MR flow (PISA) 44 ml/sec - MR ERO 7 cm2 - MR PISA radius 0.4 cm - MR alias Vmax 35 cm/sec - Name Value Normal Range TR Vmax 3.1 m/sec - TR peak gradient 38 mmHg - RAP 8 mmHg - RVSP 46 mmHg - IVC diameter 1.6 cm - Name Value Normal Range PV Vmax 0.6 m/sec - PV peak gradient 1.4 mmHg - Wallmotion BAS Not Seen BA Not Seen BAL Not Seen KAIDEN Not Seen BI Not Seen BIS Not Seen MAS Not Seen MA Hypokinetic MAL Not Seen MIL Not Seen CO Not Seen MIS Not Seen Not Seen AA Akinetic AL Not Seen AI Hypokinetic APEX Hypokinetic
[2017-06-23] MEDS ORDERED: glipiZIDE TAB* 5 MG PO ONE (17:51)
--- NOTE | 2017-06-23 18:04 | PN ---
Subjective Date of Service: 06/23/17 Interval History: No new c/o. She slid off the toilet seat today, did not hit her head. Objective Active Medications: Dextrose (D50w Syringe 50 Ml*) 12.5 gm IV PUSH .FOR FS < 60 - SS PRN PRN Reason: FS < 60 Glipizide (Glucotrol Tab*) 5 mg PO ONCE ONE Stop: 06/23/17 17:52 Glipizide (Glucotrol Tab*) 5 mg PO 0800,1700 [facility] Sodium Chloride (Ns 0.9% 1000 Ml*) 1,000 mls @ 60 mls/hr IV .PER RATE [facility] Last Admin: 06/23/17 11:19 Dose: 60 mls/hr Insulin Human Lispro (Humalog*) 0 units SUBCUT ACHS [facility] PRN Reason: Protocol Last Admin: 06/23/17 12:55 Dose: 2 unit Labetalol HCl (Trandate Iv*) 10 mg IV PUSH Q1H PRN PRN Reason: BLOOD PRESSURE Polyethylene Glycol/Electrolytes (Miralax*) 17 gm PO BEDTIME [facility] Last Admin: 06/22/17 22:24 Dose: Not Given Vital Signs 06/22/17 06/22/17 06/22/17 18:00 18:01 18:31 Temperature Pulse Rate 81 82 80 Respiratory 12 22 18 Rate Blood Pressure 121/73 99/85 (mmHg) O2 Sat by Pulse 95 89 92 Oximetry 06/22/17 06/22/17 06/22/17 19:00 19:30 20:00 Temperature 99.5 F Pulse Rate 74 75 73 Respiratory 20 22 19 Rate Blood Pressure 107/59 102/58 (mmHg) O2 Sat by Pulse 93 94 96 Oximetry 06/22/17 06/22/17 06/22/17 20:01 20:30 20:45 Temperature Pulse Rate 74 73 Respiratory 20 23 21 Rate Blood Pressure 121/64 120/73 (mmHg) O2 Sat by Pulse 91 96 Oximetry 06/22/17 06/22/17 06/22/17 21:00 21:30 22:00 Temperature Pulse Rate 79 77 75 Respiratory 21 26 20 Rate Blood Pressure 104/63 106/60 97/59 (mmHg) O2 Sat by Pulse 93 92 94 Oximetry 06/22/17 06/22/17 06/22/17 22:30 23:00 23:01 Temperature Pulse Rate 88 94 88 Respiratory 24 24 Rate Blood Pressure 104/60 105/71 (mmHg) O2 Sat by Pulse 94 82 94 Oximetry 06/22/17 06/22/17 06/23/17 23:34 23:39 00:00 Temperature 98.9 F 98.9 F Pulse Rate 82 83 Respiratory 22 21 Rate Blood Pressure (mmHg) O2 Sat by Pulse 93 93 Oximetry 06/23/17 06/23/17 06/23/17 00:01 00:42 01:00 Temperature Pulse Rate 81 81 Respiratory 25 22 Rate Blood Pressure 102/57 105/60 (mmHg) O2 Sat by Pulse 94 92 Oximetry 06/23/17 06/23/17 06/23/17 01:01 01:30 02:00 Temperature Pulse Rate 81 80 Respiratory 18 Rate Blood Pressure 94/54 (mmHg) O2 Sat by Pulse 93 95 Oximetry 06/23/17 06/23/17 06/23/17 02:01 03:00 03:01 Temperature Pulse Rate 82 79 91 Respiratory 22 Rate Blood Pressure 97/58 (mmHg) O2 Sat by Pulse 96 94 97 Oximetry 06/23/17 06/23/17 06/23/17 03:36 04:00 04:08 Temperature 98.2 F Pulse Rate 81 87 Respiratory 24 22 14 Rate Blood Pressure 112/60 (mmHg) O2 Sat by Pulse 94 93 Oximetry 06/23/17 06/23/17 06/23/17 04:47 05:00 05:01 Temperature Pulse Rate 83 77 Respiratory 21 20 22 Rate Blood Pressure 121/66 (mmHg) O2 Sat by Pulse 93 97 Oximetry 06/23/17 06/23/17 06/23/17 05:32 06:00 07:00 Temperature Pulse Rate 82 92 Respiratory 14 26 15 Rate Blood Pressure 122/64 93/57 (mmHg) O2 Sat by Pulse 95 88 Oximetry 06/23/17 06/23/17 06/23/17 07:55 08:00 08:30 Temperature 98.0 F Pulse Rate 87 Respiratory 18 18 Rate Blood Pressure 125/73 (mmHg) O2 Sat by Pulse 90 86 Oximetry 06/23/17 06/23/17 06/23/17 09:00 10:00 11:00 Temperature Pulse Rate 87 88 91 Respiratory 26 16 18 Rate Blood Pressure 123/99 117/76 118/63 (mmHg) O2 Sat by Pulse 67 89 88 Oximetry 06/23/17 06/23/17 06/23/17 12:00 13:00 13:01 Temperature 98.4 F Pulse Rate 80 87 84 Respiratory 14 19 16 Rate Blood Pressure 127/91 126/75 (mmHg) O2 Sat by Pulse 93 96 97 Oximetry 06/23/17 06/23/17 06/23/17 14:00 15:00 15:01 Temperature Pulse Rate 83 86 85 Respiratory 18 Rate Blood Pressure 105/65 112/72 (mmHg) O2 Sat by Pulse 94 95 94 Oximetry 06/23/17 06/23/17 06/23/17 16:00 16:01 16:59 Temperature 97.5 F Pulse Rate 92 87 85 Respiratory 16 Rate Blood Pressure 125/75 111/59 (mmHg) O2 Sat by Pulse 89 87 96 Oximetry Oxygen Devices in Use Now: None Appearance: Alert, partly up in bed. In fair spirits. Looks comfortable. Eyes: No Scleral Icterus Neck: NL Appearance and Movements; NL JVP Neurological: Alert and Oriented x 3 - Moves all limbs. Speech sl dysarthric. No tremor. , NL Sensation Result Diagrams: 06/23/17 05:15 06/23/17 05:15 Additional Lab and Data: Lab Results 06/22/17 06/22/17 06/22/17 Range/Units 04:57 04:58 04:58 WBC 8.6 (3.5-10.8) 10^3/ul RBC 3.80 L (4.0-5.4) 10^6/ul Hgb 11.7 L (12.0-16.0) g/dl Hct 34 L (35-47) % MCV 89 (80-97) fL MCH 31 (27-31) pg MCHC 35 (31-36) g/dl RDW 13 (10.5-15) % Plt Count 216 (150-450) 10^3/ul MPV 12 H (7.4-10.4) um3 Neut % (Auto) 67.8 (38-83) % Lymph % (Auto) 23.5 L (25-47) % [place] % (Auto) 6.7 (1-9) % Eos % (Auto) 1.1 (0-6) % Baso % (Auto) 0.9 (0-2) % Absolute Neuts (auto) 5.8 (1.5-7.7) 10^3/ul Absolute Lymphs (auto) 2.0 (1.0-4.8) 10^3/ul Absolute Monos (auto) 0.6 (0-0.8) 10^3/ul Absolute Eos (auto) 0.1 (0-0.6) 10^3/ul Absolute Basos (auto) 0.1 (0-0.2) 10^3/ul Absolute Nucleated RBC 0.01 10^3/ul Nucleated RBC % 0.1 INR (Anticoag Therapy) 0.86 L (0.89-1.11) APTT 29.9 (26.0-36.3) seconds Sodium (133-145) mmol/L Potassium (3.5-5.0) mmol/L Chloride (101-111) mmol/L Carbon Dioxide (22-32) mmol/L Anion Gap (2-11) mmol/L BUN (6-24) mg/dL Creatinine (0.51-0.95) mg/dL Est GFR ( Amer) (>60) Est GFR (Non-Af Amer) (>60) BUN/Creatinine Ratio (8-20) Glucose (70-100) mg/dL POC Glucose (mg/dL) 270 H (70-100) mg/dL Lactic Acid (0.5-2.0) mmol/L Calcium (8.6-10.3) mg/dL Total Bilirubin (0.2-1.0) mg/dL AST (13-39) U/L ALT (7-52) U/L Alkaline Phosphatase (34-104) U/L Troponin I (<0.04) ng/mL Total Protein (6.4-8.9) g/dL Albumin (3.2-5.2) g/dL Globulin (2-4) g/dL Albumin/Globulin Ratio (1-3) Triglycerides mg/dL Cholesterol mg/dL LDL Cholesterol mg/dL HDL Cholesterol mg/dL Blood Type Antibody Screen 06/22/17 06/22/17 06/22/17 Range/Units 04:58 04:58 04:58 WBC (3.5-10.8) 10^3/ul RBC (4.0-5.4) 10^6/ul Hgb (12.0-16.0) g/dl Hct (35-47) % MCV (80-97) fL MCH (27-31) pg MCHC (31-36) g/dl RDW (10.5-15) % Plt Count (150-450) 10^3/ul MPV (7.4-10.4) um3 Neut % (Auto) (38-83) % Lymph % (Auto) (25-47) % [place] % (Auto) (1-9) % Eos % (Auto) (0-6) % Baso % (Auto) (0-2) % Absolute Neuts (auto) (1.5-7.7) 10^3/ul Absolute Lymphs (auto) (1.0-4.8) 10^3/ul Absolute Monos (auto) (0-0.8) 10^3/ul Absolute Eos (auto) (0-0.6) 10^3/ul Absolute Basos (auto) (0-0.2) 10^3/ul Absolute Nucleated RBC 10^3/ul Nucleated RBC % INR (Anticoag Therapy) (0.89-1.11) APTT (26.0-36.3) seconds Sodium 133 (133-145) mmol/L Potassium 4.5 (3.5-5.0) mmol/L Chloride 94 L (101-111) mmol/L Carbon Dioxide 32 (22-32) mmol/L Anion Gap 7 (2-11) mmol/L BUN 28 H (6-24) mg/dL Creatinine 1.12 H (0.51-0.95) mg/dL Est GFR ( Amer) 62.8 (>60) Est GFR (Non-Af Amer) 48.8 (>60) BUN/Creatinine Ratio 25.0 H (8-20) Glucose 297 H (70-100) mg/dL POC Glucose (mg/dL) (70-100) mg/dL Lactic Acid 1.3 (0.5-2.0) mmol/L Calcium 11.3 H (8.6-10.3) mg/dL Total Bilirubin 0.40 (0.2-1.0) mg/dL AST 42 H (13-39) U/L ALT 52 (7-52) U/L Alkaline Phosphatase 337 H (34-104) U/L Troponin I 0.01 (<0.04) ng/mL Total Protein 7.2 (6.4-8.9) g/dL Albumin 4.1 (3.2-5.2) g/dL Globulin 3.1 (2-4) g/dL Albumin/Globulin Ratio 1.3 (1-3) Triglycerides 110 mg/dL Cholesterol 278 mg/dL LDL Cholesterol 159 mg/dL HDL Cholesterol 97.0 mg/dL Blood Type O Positive Antibody Screen Negative Microbiology and Other Data: Microbiology 06/22/17 14:55 Nasal Screen MRSA (PCR)(LUIS) - Final Nasal Mrsa Negative Assess/Plan/Problems-Billing Assessment: - Patient Problems (1) Hemorrhagic stroke Current Visit: Yes Status: Acute Code(s): I61.9 - NONTRAUMATIC INTRACEREBRAL HEMORRHAGE, UNSPECIFIED SNOMED Code(s): 214035218 Comment: R ICH hemorrhage. Old L cerebral CVA by hx. Uses cane at home. OT /PT. Nurse swallow eval. I spoke with Dr. Nicole about pt 06/22. Start ASA Day [address] Nicole. Stop lisinopril as BP on low side. PMRU eval requested. (2) Diabetes Current Visit: Yes Status: Acute Code(s): E11.9 - TYPE 2 DIABETES MELLITUS WITHOUT COMPLICATIONS SNOMED Code(s): 33117426 Comment: Start glipizide. Continue Lispro by SS. Cons carb diet if no intervention planned. May add metformin later. (3) HTN (hypertension) Current Visit: Yes Status: Acute Code(s): I10 - ESSENTIAL (PRIMARY) HYPERTENSION SNOMED Code(s): 71836928 Comment: Resolved. See above. (4) Constipation Current Visit: Yes Status: Acute Code(s): K59.00 - CONSTIPATION, UNSPECIFIED SNOMED Code(s): 79021484 Comment: MOM 60 ml 06/22, start PEG 17 gm hs 06/22.
[2017-06-23] MEDS: Polyethylene Glycol 3350* 17 GM PACKET PO SCH (20:04)
[2017-06-24 08:11] LABS: PCO2 Arterial 32 mmHg (35-45)
[2017-06-24] MEDS: Insulin LISPRO* 1 UNITS UNIT SUBCUT SCH ×4 (08:11→22:41)
[2017-06-24] MEDS: glipiZIDE TAB* 5 MG PO SCH ×2 (08:13→17:46)
[2017-06-24 09:04] LABS: Hematocrit 32 % (35-47); Hemoglobin 10.6 g/dl (12.0-16.0); Mean Corpuscular HGB Conc 33 g/dl (31-36); Mean Corpuscular Hemoglobin 30 pg (27-31); Mean Corpuscular Volume 91 fL (80-97); Mean Platelet Volume 11 um3 (7.4-10.4); Red Blood Count 3.54 10^6/ul (4.0-5.4); Red Cell Distribution Width 13 % (10.5-15); White Blood Count 13.6 10^3/ul (3.5-10.8)
--- NOTE | 2017-06-24 09:04 | PN ---
PROGRESS NOTE DATE: 06/24/17 - ROOM #[id number] SUBJECTIVE: Overnight, she was stable; but, this morning, she woke up and she was tachypneic, breat adam in the 40s, short of breath. She currently denies any chest pain. She denies any headaches. She denies any new focal tingling, numbness or weakness. She's unclear why she's short of breath. She is currently to have an EKG and a blood gas per her primary care physician. She denies any left arm pain or jaw claudication. She, otherwise, feels "okay." PHYSICAL EXAM: Vital signs - temperature 98.6 this morning, pulse rate 90, respiratory rate of 24, O2 sat 85, blood pressure 115/67. Blood pressures have been normal. On exam, in general she's a we ll-nourished, well-developed female. She's sitting in her hospital bed. She's comfortable but breat adam rapidly. She is not diaphoretic. She's clear to auscultation bilaterally with a cough, non- p roductive. She's regular rate and rhythm currently. Abdomen is non-tender. Extremities - no edema noted. On neurologic exam, she's awake, alert. She's oriented to person, place and time. Her spee ch is fluent with some mild dysarthria. Cranial nerves - pupils are equal, round and reactive. Ext raocular muscles are intact. Face is symmetric. Sensation on the face is intact. Tongue midline, oropharynx symmetric. She's spontaneously moving all extremities antigravity. On the right side, s he's 4+/5; on the left she's 4+/5 with some mild drift in the left upper extremity. DTRs are 1+ and symmetric. Sensation - she has continued loss of sensation in the left hand; otherwise, no improve ment. She follows all commands. There is no tremor noted. Gait was not tested this morning. LABWORK: None pending this morning. RADIOLOGY: She had a CT of the head done yesterday which showed no change in the bleed. Suspect in tracranial hemorrhage versus possible low-grade neoplasm. Recommend MRI. I looked at the images; on review, I agree. Transthoracic echocardiogram showed moderate decreased left ventricular systolic function, ejection fraction 35-40%, focal wall motion abnormality. Mild anterior and apical inferior wall segment are hypokinetic. The apical anterior wall segment is akinetic. There is no evidence of aortic stenosis . There is mild mitral regurg. There is mild to moderate tricuspid regurg. There is evidence of m ild to moderate pulmonary hypertension. There is no significant pericardial effusion. Head CTA, as noted yesterday, shows no evidence of any aneurysm. She did have 70% stenosis of the r ight internal carotid artery. ASSESSMENT AND PLAN: Ms. Cortes is a 67-year-old female with likely intracerebral hemorrhage, 1.3 cm i n the right thalamus. There have been serial CTs that showed no change; but, given the fact that th ere is the possibility of a low-grade neoplasm, I'm going to get an MRI with and without contrast to better assess. I think at this point we can normalize her blood pressure, continue medications for any elevated blood pressures. I would continue to hold aspirin for one week after the event. We c an start a statin on discharge, but I would hold for now. As far as her shortness of breath is concerned, she's currently getting an EKG and ABG differential to include a cardiac cause such as an VA versus a pulmonary embolism versus developing pneumonia. I defer to the primary care physician regarding additional workup. Continue tight glucose control. I will continue to follow her closely. [id number]/[facility] #: [id number]
[2017-06-24] MEDS: NS 0.9% 1000 ML* 1,000 ML IV SCH (09:19)
[2017-06-24 09:25] LABS: BUN/Creatinine Ratio 25.9 (8-20); Calcium 8.8 mg/dL (8.6-10.3); EGFR African American 60.3 (>60); EGFR Non-African American 46.9 (>60)
[2017-06-24] MEDS ORDERED: Iodixanol* (CONTRAST) 320 MG/ML 100 ML SDV IV SCH (09:32)
--- NOTE | 2017-06-24 10:57 | RAD ---
INDICATION: Hypoxemia. Evaluate for pulmonary embolus. COMPARISON: Chest x-ray June 22, 2017 TECHNIQUE: Axial source images were obtained from the thoracic inlet to the hemidiaphragms following administration of [address] angiographic technique was utilized. Coronal and sagittal reconstructed images were acquired. CHEST FINDINGS: Neck/thyroid: The visualized neck to include the thyroid appear normal. Chest wall: There are no acute abnormalities of the bony thorax or chest wall. There is no supraclavicular, infraclavicular, or axillary lymphadenopathy. Lungs : There are multiple small nodular opacities in right middle lobe. There is mild dependent atelectasis in both lung bases. Suggest follow-up to document resolution. Cardiomediastinal structures: There is no CT evidence of acute pulmonary embolic disease. The heart is normal in size. There is no pericardial effusion. There is no evidence of aortic aneurysm or dissection. There is mediastinal lymphadenopathy with a 2.5 cm right paratracheal lymph and there are additional enlarged right paratracheal and subcarinal lymph nodes. The esophagus appears normal. Pleura : Moderate size bilateral pleural effusions. There is fluid in the major fissure on the right Other: Limited views the upper abdomen show no specific CT abnormalities. IMPRESSION: 1. No CT evidence of acute pulmonary embolic disease. 2. Nonspecific nodular opacities in the right middle lobe. 3. Mediastinal lymphadenopathy 4. Moderate-sized bilateral pleural effusions .
--- NOTE | 2017-06-24 12:00 | RAD ---
HISTORY: Hemorrhage versus stroke COMPARISONS: Head CT dated June 23, 2017, CT dated June 22, 2017 TECHNIQUE: The following sequences were obtained of the head: Sagittal T1-weighted images, axial T2-weighted images, axial FLAIR images, axial susceptibility weighted images, axial T1-weighted images. Additionally, axial diffusion-weighted images were obtained with calculated apparent diffusion coefficients. FINDINGS: HEMORRHAGE/INFARCT: There is susceptibility artifact with intermediate T1 signal and low T2 signal within the right thalamus corresponding to the hemorrhage noted on the previous CT examination. There are punctate foci of restricted diffusion noted within the right precentral gyrus on axial images 2324. Elsewhere, there is no acute hemorrhage or acute infarct. MASSES/SHIFT: There is no mass or shift. EXTRA-AXIAL SPACES/MENINGES: There are no extra-axial fluid collections. SULCI AND VENTRICLES: The sulci and ventricles are normal in size and position for the patient's stated age. CEREBRUM: As noted above, there is right thalamic hemorrhage. There is susceptibility artifact noted within the basal ganglia bilaterally suggestive of remote hemorrhage. There is multifocal chronic infarcts of the [place] radiata bilaterally. There is a small focus of encephalitis within the right parietal lobe on axial image 23. BRAINSTEM: There is a chronic appearing lacunar infarct of the right middle cerebellar peduncle. CEREBELLUM: There are no focal parenchymal abnormalities. The cerebellar tonsils are normal in size and position. SELLA: The sella is normal. PINEAL: The pineal region is clear. CP ANGLE/TEMPORAL BONES: The labyrinthine structures are grossly normal. VESSELS: Normal flow-voids are noted within the visualized vertebral vasculature. DIFFUSION ABNORMALITIES: As noted above, there are punctate foci of restricted diffusion within the right precentral gyrus PARANASAL SINUSES/MASTOIDS: There are mucus retention cysts of the maxillary sinuses bilaterally. ORBITS: The orbits are unremarkable. BONES AND SOFT TISSUE: No bone or soft tissue abnormalities are noted. OTHER: None IMPRESSION: 1. AGAIN NOTED IS A RIGHT THALAMIC HEMORRHAGE. 2. THERE ARE PUNCTATE FOCI OF RESTRICTED DIFFUSION WITHIN THE RIGHT PRECENTRAL GYRUS SYSTEM WITH SUBACUTE NONHEMORRHAGIC INFARCT. 3. THE DIFFERENTIAL FOR THE RIGHT THALAMIC HEMORRHAGE INCLUDES HYPERTENSIVE HEMORRHAGE, WHICH IS SUPPORTED BY THE LOCATION AND THE PRESENCE OF REMOTE HEMORRHAGE IN THE BASAL GANGLIA ELSEWHERE. THE DIFFERENTIALS INCLUDE HEMORRHAGIC CONVERSION OF AN INFARCT WHICH IS SUPPORTED BY THE PRESENCE OF NONHEMORRHAGIC INFARCT ELSEWHERE WITHIN THE SAME VASCULAR TERRITORY. 4. HEMORRHAGIC METASTASIS IS ALSO WITHIN THE DIFFERENTIAL BUT IS CONSIDERED LESS LIKELY IN THE ABSENCE OF KNOWN MALIGNANCY. 5. HEMORRHAGE SECONDARY TO HIGH FLOW VASCULAR MALFORMATION IS NOT SUPPORTED GIVEN THE NEGATIVE CTA; HOWEVER, A SLOW FLOW VASCULAR MALFORMATION, SUCH A CAVERNOUS ANGIOMA, IS WITHIN THE DIFFERENTIAL. 6. EVIDENCE OF CHRONIC SMALL VESSEL ISCHEMIC CHANGE WITH MULTIPLE CHRONIC LACUNAR INFARCTS.
[2017-06-24] MEDS ORDERED: Furosemide IV* 10 MG/ML 2 ML VIAL (20 MG) IV ONE (15:19)
--- NOTE | 2017-06-24 15:30 | PN ---
Subjective Date of Service: 06/24/17 Interval History: SOB this AM, no chest pain. Breathing is somewhat better this PM. She also feels that her L arm is less numb, although still "uncoordinated." Objective Active Medications: Dextrose (D50w Syringe 50 Ml*) 12.5 gm IV PUSH .FOR FS < 60 - SS PRN PRN Reason: FS < 60 Furosemide (Lasix Iv*) 20 mg IV ONCE ONE Stop: 06/24/17 15:20 Glipizide (Glucotrol Tab*) 5 mg PO 0800,1700 [facility] Last Admin: 06/24/17 08:13 Dose: 5 mg Insulin Human Lispro (Humalog*) [address] [facility] PRN Reason: Protocol Last Admin: 06/24/17 13:03 Dose: Not Given Iodixanol (Visipaque* 320 (Contrast)) [address] [facility] Stop: 06/26/17 09:31 Last Admin: 06/24/17 10:26 Dose: 62 ml Labetalol HCl (Trandate Iv*) 10 mg IV PUSH Q1H PRN PRN Reason: BLOOD PRESSURE Polyethylene Glycol/Electrolytes (Miralax*) [address] [facility] Last Admin: 06/23/17 20:04 Dose: Not Given Vital Signs 06/23/17 06/23/17 06/23/17 16:00 16:01 16:57 Temperature 97.5 F Pulse Rate 92 87 85 Respiratory 16 Rate Blood Pressure 125/75 111/59 (mmHg) O2 Sat by Pulse 89 87 Oximetry 06/23/17 06/23/17 06/23/17 16:59 19:18 20:00 Temperature 97.5 F 98.6 F Pulse Rate 85 95 Respiratory 16 20 20 Rate Blood Pressure 111/59 (mmHg) O2 Sat by Pulse 96 85 92 Oximetry 06/23/17 06/24/17 06/24/17 23:13 04:07 07:20 Temperature 98.2 F 98.6 F 98.2 F Pulse Rate 92 90 91 Respiratory 16 24 20 Rate Blood Pressure 104/57 115/67 124/76 (mmHg) O2 Sat by Pulse 92 85 82 Oximetry 06/24/17 06/24/17 06/24/17 08:00 10:40 11:52 Temperature 97.4 F Pulse Rate 83 Respiratory 43 30 Rate Blood Pressure 127/75 (mmHg) O2 Sat by Pulse 90 87 94 Oximetry Oxygen Devices in Use Now: Nasal Cannula Appearance: Alert, in a chair. In fair spirits. Looks comfortable. Eyes: No Scleral Icterus Neck: NL Appearance and Movements; NL JVP, No Thyroid Enlargement, Masses Respiratory: Symmetrical Chest Expansion and Respiratory Effort, Clear to Auscultation, Clear to Percussion Skin: No Rash or Ulcers, No Nodules or Sclerosis, - Neurological: Alert and Oriented x 3, NL Sensation, - - Speech dysarthric as before. Result Diagrams: 06/24/17 08:55 06/24/17 08:55 Additional Lab and Data: Lab Results 06/22/17 06/22/17 06/22/17 Range/Units 04:57 04:58 04:58 WBC 8.6 (3.5-10.8) 10^3/ul RBC 3.80 L (4.0-5.4) 10^6/ul Hgb 11.7 L (12.0-16.0) g/dl Hct 34 L (35-47) % MCV 89 (80-97) fL MCH 31 (27-31) pg MCHC 35 (31-36) g/dl RDW 13 (10.5-15) % Plt Count 216 (150-450) 10^3/ul MPV 12 H (7.4-10.4) um3 Neut % (Auto) 67.8 (38-83) % Lymph % (Auto) 23.5 L (25-47) % [place] % (Auto) 6.7 (1-9) % Eos % (Auto) 1.1 (0-6) % Baso % (Auto) 0.9 (0-2) % Absolute Neuts (auto) 5.8 (1.5-7.7) 10^3/ul Absolute Lymphs (auto) 2.0 (1.0-4.8) 10^3/ul Absolute Monos (auto) 0.6 (0-0.8) 10^3/ul Absolute Eos (auto) 0.1 (0-0.6) 10^3/ul Absolute Basos (auto) 0.1 (0-0.2) 10^3/ul Absolute Nucleated RBC 0.01 10^3/ul Nucleated RBC % 0.1 INR (Anticoag Therapy) 0.86 L (0.89-1.11) APTT 29.9 (26.0-36.3) seconds Sodium (133-145) mmol/L Potassium (3.5-5.0) mmol/L Chloride (101-111) mmol/L Carbon Dioxide (22-32) mmol/L Anion Gap (2-11) mmol/L BUN (6-24) mg/dL Creatinine (0.51-0.95) mg/dL Est GFR ( Amer) (>60) Est GFR (Non-Af Amer) (>60) BUN/Creatinine Ratio (8-20) Glucose (70-100) mg/dL POC Glucose (mg/dL) 270 H (70-100) mg/dL Lactic Acid (0.5-2.0) mmol/L Calcium (8.6-10.3) mg/dL Total Bilirubin (0.2-1.0) mg/dL AST (13-39) U/L ALT (7-52) U/L Alkaline Phosphatase (34-104) U/L Troponin I (<0.04) ng/mL Total Protein (6.4-8.9) g/dL Albumin (3.2-5.2) g/dL Globulin (2-4) g/dL Albumin/Globulin Ratio (1-3) Triglycerides mg/dL Cholesterol mg/dL LDL Cholesterol mg/dL HDL Cholesterol mg/dL Blood Type Antibody Screen 06/22/17 06/22/17 06/22/17 Range/Units 04:58 04:58 04:58 WBC (3.5-10.8) 10^3/ul RBC (4.0-5.4) 10^6/ul Hgb (12.0-16.0) g/dl Hct (35-47) % MCV (80-97) fL MCH (27-31) pg MCHC (31-36) g/dl RDW (10.5-15) % Plt Count (150-450) 10^3/ul MPV (7.4-10.4) um3 Neut % (Auto) (38-83) % Lymph % (Auto) (25-47) % [place] % (Auto) (1-9) % Eos % (Auto) (0-6) % Baso % (Auto) (0-2) % Absolute Neuts (auto) (1.5-7.7) 10^3/ul Absolute Lymphs (auto) (1.0-4.8) 10^3/ul Absolute Monos (auto) (0-0.8) 10^3/ul Absolute Eos (auto) (0-0.6) 10^3/ul Absolute Basos (auto) (0-0.2) 10^3/ul Absolute Nucleated RBC 10^3/ul Nucleated RBC % INR (Anticoag Therapy) (0.89-1.11) APTT (26.0-36.3) seconds Sodium 133 (133-145) mmol/L Potassium 4.5 (3.5-5.0) mmol/L Chloride 94 L (101-111) mmol/L Carbon Dioxide 32 (22-32) mmol/L Anion Gap 7 (2-11) mmol/L BUN 28 H (6-24) mg/dL Creatinine 1.12 H (0.51-0.95) mg/dL Est GFR ( Amer) 62.8 (>60) Est GFR (Non-Af Amer) 48.8 (>60) BUN/Creatinine Ratio 25.0 H (8-20) Glucose 297 H (70-100) mg/dL POC Glucose (mg/dL) (70-100) mg/dL Lactic Acid 1.3 (0.5-2.0) mmol/L Calcium 11.3 H (8.6-10.3) mg/dL Total Bilirubin 0.40 (0.2-1.0) mg/dL AST 42 H (13-39) U/L ALT 52 (7-52) U/L Alkaline Phosphatase 337 H (34-104) U/L Troponin I 0.01 (<0.04) ng/mL Total Protein 7.2 (6.4-8.9) g/dL Albumin 4.1 (3.2-5.2) g/dL Globulin 3.1 (2-4) g/dL Albumin/Globulin Ratio 1.3 (1-3) Triglycerides 110 mg/dL Cholesterol 278 mg/dL LDL Cholesterol 159 mg/dL HDL Cholesterol 97.0 mg/dL Blood Type O Positive Antibody Screen Negative Microbiology and Other Data: Microbiology 06/22/17 14:55 Nasal Screen MRSA (PCR)(LUIS) - Final Nasal Mrsa Negative Assess/Plan/Problems-Billing Assessment: - Patient Problems (1) Hemorrhagic stroke Current Visit: Yes Status: Acute Code(s): I61.9 - NONTRAUMATIC INTRACEREBRAL HEMORRHAGE, UNSPECIFIED SNOMED Code(s): 536609367 Comment: R ICH hemorrhage. Old L cerebral CVA by hx. Uses cane at home. OT /PT. Nurse swallow eval. I spoke with Dr. Nicole about pt 06/22. Start ASA Day [address] Nicole. Stop lisinopril as BP on low side. PMRU eval requested. (2) Diabetes Current Visit: Yes Status: Acute Code(s): E11.9 - TYPE 2 DIABETES MELLITUS WITHOUT COMPLICATIONS SNOMED Code(s): 67952327 Comment: Start glipizide. Continue Lispro by SS. Cons carb diet if no intervention planned. May add metformin later. (3) HTN (hypertension) Current Visit: Yes Status: Acute Code(s): I10 - ESSENTIAL (PRIMARY) HYPERTENSION SNOMED Code(s): 02338909 Comment: Resolved. See above. (4) Constipation Current Visit: Yes Status: Acute Code(s): K59.00 - CONSTIPATION, UNSPECIFIED SNOMED Code(s): 18580963 Comment: MOM 60 ml 06/22, start PEG 17 gm hs 06/22. (5) Cardiomyopathy Current Visit: Yes Status: Acute Code(s): I42.9 - CARDIOMYOPATHY, UNSPECIFIED SNOMED Code(s): 46085508 Comment: Patient states she has had CHF inpast. LVEF 35-40% 06/23/17. IV fluids stopped. One dose furosemide 20 mg IV 06/24. Start metoprolol 06/24 PM, lisinopril 06/25. CTA chest showed BL pleural effusions, no PE.
[2017-06-24] MEDS: Metoprolol Tartrate TAB* 25 MG PO SCH (21:45)
[2017-06-24] MEDS: Polyethylene Glycol 3350* 17 GM PACKET PO SCH (22:42)
[2017-06-25] MEDS: Lisinopril TAB* 5 MG PO SCH (08:33)
[2017-06-25] MEDS: Metoprolol Tartrate TAB* 25 MG PO SCH ×2 (08:34→20:46)
[2017-06-25] MEDS: Insulin LISPRO* 1 UNITS UNIT SUBCUT SCH ×2 (08:34→12:09)
[2017-06-25] MEDS: glipiZIDE TAB* 5 MG PO SCH ×2 (08:34→18:17)
--- NOTE | 2017-06-25 09:13 | PN ---
PROGRESS NOTE: DATE OF PROGRESS NOTE: 06/25/17 LOCATION: Current location is 431, bed #1. Subjective: Overnight, the patient has done better. Her shortness of breath has improved, she denies any chest pain. CT angiogram yesterday showed bilateral pleural effusions, but no evidence of PE. She states that her left arm numbness feels better than yesterday and that she feels finally stronger in that arm as well. She was up in her chair yesterday and was able to "shuffle" to the chair with assistance. She is swallowing without difficulty, although her speech continues to be a problem. She feels that it is improved as well. She has had no neurologic symptoms overnight. Objective: She has been afebrile, ranging in the 98.3 to 98.5 range, pulse rate has been 80s to 90s, blood pressure high of 132 over low of 64, respiratory rate was in the 40s yesterday has improved, but she remains slightly tachypneic around 20. O2 sat has been in the mid 90s overnight. Exam: On physical examination: In general, she is a well- nourished, well-developed female. She is lying in her hospital bed. Her head is at approximately 45 degrees. She is pleasant, well dressed, well groomed. HEENT: She is normocephalic, atraumatic. Sclerae anicteric. Mucous membranes are moist. Neck : Supple. Chest: Clear to auscultation bilaterally with some tachypnea. Cardiovascular: Regular rate and rhythm without murmurs. Abdomen: Nontender. Extremities: There is no edema present. On neurologic exam, she is awake, alert, and oriented x3. Her speech is fluent with some moderate dysarthria, unchanged. She is able to repeat. She is able to name. Cranial Nerves: Pupils are equally round and reactive to light. Visual roper are full. Extraocular muscles are intact. Sensation is intact. Face is symmetric. Hearing is intact. Tongue is midline. Shoulders shrug and sternocleidomastoids are intact. Her palate raises symmetrically. Motor Exam: She is spontaneously moving all extremities. Tone and bulk are both good. She has mild drift in the left upper and left lower extremities. She generally has 4+/5 throughout in the upper and lower extremities bilaterally. Finger-to- nose was intact on the right, slow on the left with some endpoint tremor. Sensation: She states 10% to 20% reduction in the left hand, but improving; otherwise, her sensation is intact to light touch and pinprick. Gait was not tested today. Studies: Brain MRI from 06/24/17, I did review the films. Report reads as follows: 1. Again noted is a right thalamic hemorrhage. 2. There were punctate foci of restricted diffusion within the right precentral gyrus system with subacute nonhemorrhagic infarct. 3. The differential for the right thalamic infarct includes hypertensive hemorrhage, which is supported by the location and the presence of remote hemorrhage in the basal ganglia. Elsewhere the differential includes hemorrhagic conversion of an infarct, which is supported by the presence of non- hemorrhagic infarct elsewhere within the same vascular territory. 4. Hemorrhagic metastasis is also within the differential, but is considered less likely in the absence of no malignancy. 5. Hemorrhage secondary to flow vascular malformation is not supported given the negative CTA; however, a slow flow vascular malformation such as a cavernous angioma is within the differential. 6. Evidence of chronic small-vessel ischemic change within multiple chronic lacunar infarcts. She did have a head CTA done back on 06/22, which showed no evidence of aneurysm , vascular malformation, or abnormal enhancement in the immediate period following the thalamic hemorrhage. CT of the chest as noted above ASSESSMENT AND PLAN: Ms. Cortes is a 67-year-old female, who was admitted to the hospital with a right thalamic infarct as well as some subacute small hemorrhages in the same vascular distribution, presented with left-sided findings with speech difficulty , developed shortness of breath yesterday, but found not to have a PE. She is in some cardiac failure with an ejection fraction in the high 30s to low 40s. 1. The MRI supports evidence for hemorrhagic stroke, either hypertensive or conversion nonischemic stroke, although a malignancy cannot be ruled out. There was some mediastinal lymph nodes noted on CT angiogram of the chest. We consider a full workup for underlying malignancy to rule out any primary cause of possible metastatic disease. 2. I would continue to hold her aspirin until 7 days after her initial presentation. 3. I would continue to try to keep her blood pressure in the 140s over 80s to 90s range, adjusting blood pressure medications as necessary. 4. Start statin on discharge, with Crestor 20 mg daily. 5. Continue PT, OT, speech therapy. 6. Continue to follow diabetes. 7. Her constipation has improved on stool softeners. I will continue to follow her closely. [id number]/[facility] #: [id number] [place]
--- NOTE | 2017-06-25 14:22 | PN ---
Subjective Date of Service: 06/25/17 Interval History: She states her breathing is much better today. Walked some with a walker today. No new c/o. Objective Active Medications: Dextrose (D50w Syringe 50 Ml*) 12.5 gm IV PUSH .FOR FS < 60 - SS PRN PRN Reason: FS < 60 Glipizide (Glucotrol Tab*) 5 mg PO 0800,1700 [facility] Last Admin: 06/25/17 08:34 Dose: 5 mg Iodixanol (Visipaque* 320 (Contrast)) 62 ml IV ONCE [facility] Stop: 06/26/17 09:31 Last Admin: 06/24/17 10:26 Dose: 62 ml Labetalol HCl (Trandate Iv*) 10 mg IV PUSH Q1H PRN PRN Reason: BLOOD PRESSURE Lisinopril (Prinivil Tab*) 2.5 mg PO DAILY [facility] Last Admin: 06/25/17 08:33 Dose: 2.5 mg Metoprolol Tartrate (Lopressor Tab*) 12.5 mg PO Q12HR [facility] Last Admin: 06/25/17 08:34 Dose: 12.5 mg Polyethylene Glycol/Electrolytes (Miralax*) 17 gm PO BEDTIME [facility] Last Admin: 06/24/17 22:42 Dose: Not Given Vital Signs 06/24/17 06/24/17 06/24/17 15:12 16:00 16:45 Temperature 98.0 F Pulse Rate 81 Respiratory 24 Rate Blood Pressure 132/74 (mmHg) O2 Sat by Pulse 96 97 98 Oximetry 06/24/17 06/24/17 06/24/17 19:23 20:00 23:21 Temperature 97.9 F 98.3 F Pulse Rate 95 72 Respiratory 20 20 24 Rate Blood Pressure 127/73 105/63 (mmHg) O2 Sat by Pulse 86 95 91 Oximetry 06/25/17 06/25/17 06/25/17 00:00 01:08 03:20 Temperature 98.5 F Pulse Rate 75 Respiratory 24 Rate Blood Pressure 107/64 (mmHg) O2 Sat by Pulse 92 91 95 Oximetry 06/25/17 06/25/17 06/25/17 07:16 08:00 09:32 Temperature 97.3 F Pulse Rate 78 Respiratory 24 24 Rate Blood Pressure 125/66 (mmHg) O2 Sat by Pulse 91 92 97 Oximetry 06/25/17 11:29 Temperature 97.5 F Pulse Rate 62 Respiratory 24 Rate Blood Pressure 131/70 (mmHg) O2 Sat by Pulse 92 Oximetry Oxygen Devices in Use Now: Nasal Cannula Appearance: Alert, partly up in bed. In good spirits. Looks comfortable. Eyes: No Scleral Icterus Neck: NL Appearance and Movements; NL JVP, No Thyroid Enlargement, Masses Respiratory: Symmetrical Chest Expansion and Respiratory Effort, Clear to Auscultation, Clear to Percussion Cardiovascular: NL Sounds; No Murmurs; No JVD, RRR, No Edema, - Extremities: No Edema, No Clubbing, Cyanosis, - Skin: No Rash or Ulcers, No Nodules or Sclerosis, - Neurological: Alert and Oriented x 3, NL Sensation, - - dysarthric speech. Result Diagrams: 06/24/17 08:55 06/24/17 08:55 Additional Lab and Data: Lab Results 06/22/17 06/22/17 06/22/17 Range/Units 04:57 04:58 04:58 WBC 8.6 (3.5-10.8) 10^3/ul RBC 3.80 L (4.0-5.4) 10^6/ul Hgb 11.7 L (12.0-16.0) g/dl Hct 34 L (35-47) % MCV 89 (80-97) fL MCH 31 (27-31) pg MCHC 35 (31-36) g/dl RDW 13 (10.5-15) % Plt Count 216 (150-450) 10^3/ul MPV 12 H (7.4-10.4) um3 Neut % (Auto) 67.8 (38-83) % Lymph % (Auto) 23.5 L (25-47) % [place] % (Auto) 6.7 (1-9) % Eos % (Auto) 1.1 (0-6) % Baso % (Auto) 0.9 (0-2) % Absolute Neuts (auto) 5.8 (1.5-7.7) 10^3/ul Absolute Lymphs (auto) 2.0 (1.0-4.8) 10^3/ul Absolute Monos (auto) 0.6 (0-0.8) 10^3/ul Absolute Eos (auto) 0.1 (0-0.6) 10^3/ul Absolute Basos (auto) 0.1 (0-0.2) 10^3/ul Absolute Nucleated RBC 0.01 10^3/ul Nucleated RBC % 0.1 INR (Anticoag Therapy) 0.86 L (0.89-1.11) APTT 29.9 (26.0-36.3) seconds Sodium (133-145) mmol/L Potassium (3.5-5.0) mmol/L Chloride (101-111) mmol/L Carbon Dioxide (22-32) mmol/L Anion Gap (2-11) mmol/L BUN (6-24) mg/dL Creatinine (0.51-0.95) mg/dL Est GFR ( Amer) (>60) Est GFR (Non-Af Amer) (>60) BUN/Creatinine Ratio (8-20) Glucose (70-100) mg/dL POC Glucose (mg/dL) 270 H (70-100) mg/dL Lactic Acid (0.5-2.0) mmol/L Calcium (8.6-10.3) mg/dL Total Bilirubin (0.2-1.0) mg/dL AST (13-39) U/L ALT (7-52) U/L Alkaline Phosphatase (34-104) U/L Troponin I (<0.04) ng/mL Total Protein (6.4-8.9) g/dL Albumin (3.2-5.2) g/dL Globulin (2-4) g/dL Albumin/Globulin Ratio (1-3) Triglycerides mg/dL Cholesterol mg/dL LDL Cholesterol mg/dL HDL Cholesterol mg/dL Blood Type Antibody Screen 06/22/17 06/22/17 06/22/17 Range/Units 04:58 04:58 04:58 WBC (3.5-10.8) 10^3/ul RBC (4.0-5.4) 10^6/ul Hgb (12.0-16.0) g/dl Hct (35-47) % MCV (80-97) fL MCH (27-31) pg MCHC (31-36) g/dl RDW (10.5-15) % Plt Count (150-450) 10^3/ul MPV (7.4-10.4) um3 Neut % (Auto) (38-83) % Lymph % (Auto) (25-47) % [place] % (Auto) (1-9) % Eos % (Auto) (0-6) % Baso % (Auto) (0-2) % Absolute Neuts (auto) (1.5-7.7) 10^3/ul Absolute Lymphs (auto) (1.0-4.8) 10^3/ul Absolute Monos (auto) (0-0.8) 10^3/ul Absolute Eos (auto) (0-0.6) 10^3/ul Absolute Basos (auto) (0-0.2) 10^3/ul Absolute Nucleated RBC 10^3/ul Nucleated RBC % INR (Anticoag Therapy) (0.89-1.11) APTT (26.0-36.3) seconds Sodium 133 (133-145) mmol/L Potassium 4.5 (3.5-5.0) mmol/L Chloride 94 L (101-111) mmol/L Carbon Dioxide 32 (22-32) mmol/L Anion Gap 7 (2-11) mmol/L BUN 28 H (6-24) mg/dL Creatinine 1.12 H (0.51-0.95) mg/dL Est GFR ( Amer) 62.8 (>60) Est GFR (Non-Af Amer) 48.8 (>60) BUN/Creatinine Ratio 25.0 H (8-20) Glucose 297 H (70-100) mg/dL POC Glucose (mg/dL) (70-100) mg/dL Lactic Acid 1.3 (0.5-2.0) mmol/L Calcium 11.3 H (8.6-10.3) mg/dL Total Bilirubin 0.40 (0.2-1.0) mg/dL AST 42 H (13-39) U/L ALT 52 (7-52) U/L Alkaline Phosphatase 337 H (34-104) U/L Troponin I 0.01 (<0.04) ng/mL Total Protein 7.2 (6.4-8.9) g/dL Albumin 4.1 (3.2-5.2) g/dL Globulin 3.1 (2-4) g/dL Albumin/Globulin Ratio 1.3 (1-3) Triglycerides 110 mg/dL Cholesterol 278 mg/dL LDL Cholesterol 159 mg/dL HDL Cholesterol 97.0 mg/dL Blood Type O Positive Antibody Screen Negative Microbiology and Other Data: Microbiology 06/22/17 14:55 Nasal Screen MRSA (PCR)(LUIS) - Final Nasal Mrsa Negative Assess/Plan/Problems-Billing Assessment: - Patient Problems (1) Hemorrhagic stroke Current Visit: Yes Status: Acute Code(s): I61.9 - NONTRAUMATIC INTRACEREBRAL HEMORRHAGE, UNSPECIFIED SNOMED Code(s): 016638355 Comment: R ICH hemorrhage. Old L cerebral CVA by hx. Uses cane at home. OT /PT. Nurse swallow eval. I spoke with Dr. Nicole about pt 06/22. Start ASA Day [address] Nicole. Stop lisinopril as BP on low side. PMRU eval requested. (2) Diabetes Current Visit: Yes Status: Acute Code(s): E11.9 - TYPE 2 DIABETES MELLITUS WITHOUT COMPLICATIONS SNOMED Code(s): 33134637 Comment: Start glipizide. Continue Lispro by SS. Cons carb diet if no intervention planned. May add metformin later. (3) Constipation Current Visit: Yes Status: Acute Code(s): K59.00 - CONSTIPATION, UNSPECIFIED SNOMED Code(s): 32075601 Comment: MOM 60 ml 06/22, start PEG 17 gm hs 06/22. (4) Cardiomyopathy Current Visit: Yes Status: Acute Code(s): I42.9 - CARDIOMYOPATHY, UNSPECIFIED SNOMED Code(s): 00917313 Comment: Patient states she has had CHF in the past. LVEF 35-40% 06/23/17. One dose furosemide 20 mg IV 06/24. Continue metoprolol and lisinopril.
[2017-06-25] MEDS: Polyethylene Glycol 3350* 17 GM PACKET PO SCH (20:46)
[2017-06-26] MEDS: Lisinopril TAB* 5 MG PO SCH (07:43)
[2017-06-26] MEDS: Metoprolol Tartrate TAB* 25 MG PO SCH ×2 (07:44→20:47)
[2017-06-26] MEDS: glipiZIDE TAB* 5 MG PO SCH ×2 (07:44→17:55)
--- NOTE | 2017-06-26 08:37 | RAD ---
INDICATION: Dyspnea COMPARISON: Chest x-ray dated June 22, 2017 TECHNIQUE: PA and lateral views of the chest were obtained. FINDINGS: The heart and mediastinum are normal in size and contour. The pulmonary vasculature is engorged and indistinct. There is densities scaring the bilateral lung bases causing bilateral costophrenic angle blunting. Visualized bones are normal for the patient's age. There is no radiographic evidence of free air beneath the diaphragm IMPRESSION: IN THE CORRECT CLINICAL SETTING CHEST X-RAY FINDINGS ARE MOST CONSISTENT WITH EXACERBATION OF CONGESTIVE HEART FAILURE WITH SMALL BIBASILAR PLEURAL EFFUSIONS.
[2017-06-26] MEDS ORDERED: Furosemide IV* 10 MG/ML 2 ML VIAL (20 MG) IV ONE (12:51)
--- NOTE | 2017-06-26 12:58 | PN ---
Subjective Date of Service: 06/26/17 Interval History: More SOB today. No cough, chest pain. Objective Active Medications: Dextrose (D50w Syringe 50 Ml*) 12.5 gm IV PUSH .FOR FS < 60 - SS PRN PRN Reason: FS < 60 Furosemide (Lasix Iv*) 20 mg IV ONCE ONE Stop: 06/26/17 12:52 Glipizide (Glucotrol Tab*) 5 mg PO 0800,1700 [facility] Last Admin: 06/26/17 07:44 Dose: 5 mg Labetalol HCl (Trandate Iv*) 10 mg IV PUSH Q1H PRN PRN Reason: BLOOD PRESSURE Lisinopril (Prinivil Tab*) 2.5 mg PO DAILY [facility] Last Admin: 06/26/17 07:43 Dose: 2.5 mg Metoprolol Tartrate (Lopressor Tab*) 12.5 mg PO Q12HR [facility] Last Admin: 06/26/17 07:44 Dose: 12.5 mg Polyethylene Glycol/Electrolytes (Miralax*) 17 gm PO BEDTIME [facility] Last Admin: 06/25/17 20:46 Dose: 17 gm Torsemide (Demadex*) 20 mg PO DAILY [facility] Vital Signs 06/25/17 06/25/17 06/25/17 16:00 16:05 19:20 Temperature 97.7 F 98.6 F Pulse Rate 67 76 Respiratory 22 14 Rate Blood Pressure 116/61 123/68 (mmHg) O2 Sat by Pulse 92 98 94 Oximetry 06/25/17 06/25/17 06/25/17 20:00 22:45 23:46 Temperature 98.0 F Pulse Rate 72 Respiratory 14 20 Rate Blood Pressure 107/58 (mmHg) O2 Sat by Pulse 94 94 90 Oximetry 06/26/17 06/26/17 06/26/17 00:00 03:39 07:16 Temperature 97.9 F 97.8 F Pulse Rate 69 69 Respiratory 28 28 Rate Blood Pressure 116/57 119/61 (mmHg) O2 Sat by Pulse 90 94 85 Oximetry 06/26/17 06/26/17 08:00 11:04 Temperature 98.3 F Pulse Rate 64 Respiratory 38 24 Rate Blood Pressure 139/71 (mmHg) O2 Sat by Pulse 100 Oximetry Oxygen Devices in Use Now: Nasal Cannula Appearance: Alert, in a chair. In fair spirits. Looks comfortable. Eyes: No Scleral Icterus Neck: NL Appearance and Movements; NL JVP, No Thyroid Enlargement, Masses Respiratory: Symmetrical Chest Expansion and Respiratory Effort, Clear to Percussion - Basilar rales and rhonchi BL Cardiovascular: NL Sounds; No Murmurs; No JVD, RRR, No Edema, - Extremities: No Edema, No Clubbing, Cyanosis, - Skin: No Rash or Ulcers, No Nodules or Sclerosis, - Neurological: Alert and Oriented x 3, NL Sensation, - - Speech dysarthic as before. Moves all limbs. Result Diagrams: 06/24/17 08:55 06/24/17 08:55 Additional Lab and Data: Lab Results 06/22/17 06/22/17 06/22/17 Range/Units 04:57 04:58 04:58 WBC 8.6 (3.5-10.8) 10^3/ul RBC 3.80 L (4.0-5.4) 10^6/ul Hgb 11.7 L (12.0-16.0) g/dl Hct 34 L (35-47) % MCV 89 (80-97) fL MCH 31 (27-31) pg MCHC 35 (31-36) g/dl RDW 13 (10.5-15) % Plt Count 216 (150-450) 10^3/ul MPV 12 H (7.4-10.4) um3 Neut % (Auto) 67.8 (38-83) % Lymph % (Auto) 23.5 L (25-47) % [place] % (Auto) 6.7 (1-9) % Eos % (Auto) 1.1 (0-6) % Baso % (Auto) 0.9 (0-2) % Absolute Neuts (auto) 5.8 (1.5-7.7) 10^3/ul Absolute Lymphs (auto) 2.0 (1.0-4.8) 10^3/ul Absolute Monos (auto) 0.6 (0-0.8) 10^3/ul Absolute Eos (auto) 0.1 (0-0.6) 10^3/ul Absolute Basos (auto) 0.1 (0-0.2) 10^3/ul Absolute Nucleated RBC 0.01 10^3/ul Nucleated RBC % 0.1 INR (Anticoag Therapy) 0.86 L (0.89-1.11) APTT 29.9 (26.0-36.3) seconds Sodium (133-145) mmol/L Potassium (3.5-5.0) mmol/L Chloride (101-111) mmol/L Carbon Dioxide (22-32) mmol/L Anion Gap (2-11) mmol/L BUN (6-24) mg/dL Creatinine (0.51-0.95) mg/dL Est GFR ( Amer) (>60) Est GFR (Non-Af Amer) (>60) BUN/Creatinine Ratio (8-20) Glucose (70-100) mg/dL POC Glucose (mg/dL) 270 H (70-100) mg/dL Lactic Acid (0.5-2.0) mmol/L Calcium (8.6-10.3) mg/dL Total Bilirubin (0.2-1.0) mg/dL AST (13-39) U/L ALT (7-52) U/L Alkaline Phosphatase (34-104) U/L Troponin I (<0.04) ng/mL Total Protein (6.4-8.9) g/dL Albumin (3.2-5.2) g/dL Globulin (2-4) g/dL Albumin/Globulin Ratio (1-3) Triglycerides mg/dL Cholesterol mg/dL LDL Cholesterol mg/dL HDL Cholesterol mg/dL Blood Type Antibody Screen 06/22/17 06/22/17 06/22/17 Range/Units 04:58 04:58 04:58 WBC (3.5-10.8) 10^3/ul RBC (4.0-5.4) 10^6/ul Hgb (12.0-16.0) g/dl Hct (35-47) % MCV (80-97) fL MCH (27-31) pg MCHC (31-36) g/dl RDW (10.5-15) % Plt Count (150-450) 10^3/ul MPV (7.4-10.4) um3 Neut % (Auto) (38-83) % Lymph % (Auto) (25-47) % [place] % (Auto) (1-9) % Eos % (Auto) (0-6) % Baso % (Auto) (0-2) % Absolute Neuts (auto) (1.5-7.7) 10^3/ul Absolute Lymphs (auto) (1.0-4.8) 10^3/ul Absolute Monos (auto) (0-0.8) 10^3/ul Absolute Eos (auto) (0-0.6) 10^3/ul Absolute Basos (auto) (0-0.2) 10^3/ul Absolute Nucleated RBC 10^3/ul Nucleated RBC % INR (Anticoag Therapy) (0.89-1.11) APTT (26.0-36.3) seconds Sodium 133 (133-145) mmol/L Potassium 4.5 (3.5-5.0) mmol/L Chloride 94 L (101-111) mmol/L Carbon Dioxide 32 (22-32) mmol/L Anion Gap 7 (2-11) mmol/L BUN 28 H (6-24) mg/dL Creatinine 1.12 H (0.51-0.95) mg/dL Est GFR ( Amer) 62.8 (>60) Est GFR (Non-Af Amer) 48.8 (>60) BUN/Creatinine Ratio 25.0 H (8-20) Glucose 297 H (70-100) mg/dL POC Glucose (mg/dL) (70-100) mg/dL Lactic Acid 1.3 (0.5-2.0) mmol/L Calcium 11.3 H (8.6-10.3) mg/dL Total Bilirubin 0.40 (0.2-1.0) mg/dL AST 42 H (13-39) U/L ALT 52 (7-52) U/L Alkaline Phosphatase 337 H (34-104) U/L Troponin I 0.01 (<0.04) ng/mL Total Protein 7.2 (6.4-8.9) g/dL Albumin 4.1 (3.2-5.2) g/dL Globulin 3.1 (2-4) g/dL Albumin/Globulin Ratio 1.3 (1-3) Triglycerides 110 mg/dL Cholesterol 278 mg/dL LDL Cholesterol 159 mg/dL HDL Cholesterol 97.0 mg/dL Blood Type O Positive Antibody Screen Negative Microbiology and Other Data: Microbiology 06/22/17 14:55 Nasal Screen MRSA (PCR)(LUIS) - Final Nasal Mrsa Negative Assess/Plan/Problems-Billing Assessment: - Patient Problems (1) Hemorrhagic stroke Current Visit: Yes Status: Acute Code(s): I61.9 - NONTRAUMATIC INTRACEREBRAL HEMORRHAGE, UNSPECIFIED SNOMED Code(s): 715228899 Comment: R ICH hemorrhage. Old L cerebral CVA by hx. Uses cane at home. OT /PT. Nurse swallow eval. I spoke with Dr. Nicole about pt 06/22. Start ASA Day [address] Nicole. Stop lisinopril as BP on low side. PMRU eval requested. (2) Diabetes Current Visit: Yes Status: Acute Code(s): E11.9 - TYPE 2 DIABETES MELLITUS WITHOUT COMPLICATIONS SNOMED Code(s): 63114685 Comment: Reduce glipizide to 2.5 mg 0800/1700, start 06/26 PM. Continue Lispro by SS. Cons carb diet if no intervention planned. May add metformin later. (3) Constipation Current Visit: Yes Status: Acute Code(s): K59.00 - CONSTIPATION, UNSPECIFIED SNOMED Code(s): 90049481 Comment: MOM 60 ml 06/22, start PEG 17 gm hs 06/22. (4) Cardiomyopathy Current Visit: Yes Status: Acute Code(s): I42.9 - CARDIOMYOPATHY, UNSPECIFIED SNOMED Code(s): 02601734 Comment: Patient states she has had CHF in the past. LVEF 35-40% 06/23/17. One dose furosemide 20 mg IV 06/24. Continue metoprolol and lisinopril. SOB 06/26 , CXR shows small BL fpeural effusions. Second dose IV furosemide ordered 06/26 , start daily po torsemide 06/27. BMP 06/27.
[2017-06-26] MEDS: Polyethylene Glycol 3350* 17 GM PACKET PO SCH (20:47)
--- NOTE | 2017-06-27 02:43 | PN ---
PROGRESS REPORT: DATE OF SERVICE: 06/26/17 LOCATION: She is currently in room 431, bed 1. SUBJECTIVE: Yesterday, she was complaining of shortness of breath. She did receive some Lasix and felt better. This morning, she continues to have some shortness of breath when she speaks; otherwise, she has been doing well. She is up in her chair. She is responsive. She is pleasant. She feels that she is about the same from a neurologic perspective as she was yesterday. She does not have any worsening. She has no new symptoms. She is swallowing without difficulty. She denies any new speech problems, although she continues to have some dysarthria. OBJECTIVE: Temp 98.3, pulse rate is 64, respiratory rate of 24, pulse ox of 100 %, blood pressure 139/71. Her blood pressures overall have been good 60s to 120s in general, respiratory rate 16 to high of 40. In general, she is a well- nourished, well-developed female sitting on her hospital bed. She is pleasant. HEENT: She is normocephalic, atraumatic. Sclerae anicteric. Mucous membranes are moist. Oropharynx is clear. Nares are patent. Neck is supple. Chest: Clear to auscultation bilaterally. Cardiovascular: Regular rate and rhythm. Abdomen is nontender. Extremities: No significant edema. On neurologic exam, she is awake, alert, and oriented x3. Her speech is fluent with some mild dysarthria. No aphasia present. Cranial Nerves: Pupils are equal, round, and reactive to light. Visual roper are full. Extraocular muscles are intact. Face is symmetric. Sensation is intact. Oropharynx is symmetric. Palate rise is symmetric. She spontaneously moves all extremities antigravity. She continues to have drift in the left upper extremity, generally 4+/5 proximally and distally in the left upper extremity; left lower extremity is 5/5, right side is 5/5. DTRs are 1+ and symmetric in the upper and lower extremities. Sensation: She says that she has mildly decreased light touch pinprick in the left hand, which is unchanged. Exam is stable. No new neurologic findings. DIAGNOSTIC STUDIES/LAB DATA: Overnight, her methylmalonic acid came back at 0.34. She had a glucose of 121. Chest x-ray done this morning was most consistent with exacerbation of congestive heart failure and small bibasilar pleural effusions. ASSESSMENT AND PLAN: Ms. Cortes is a 67-year-old female with right thalamic stroke , hemorrhagic in nature. She is doing well from a neurologic standpoint. Continue current management. Hold aspirin for the next several days until she is 7 days out from her stroke. Continue blood pressure control, we will strike for normalized blood pressures at this point. Continue blood sugar control. I would start statin on discharge, Crestor 20 mg q. day. Continue speech therapy. Dr. Beltrán is working up her shortness of breath. She did respond well to Lasix; this could likely from her congestive heart failure. I will continue to follow her while she is an inpatient. [id number]/[facility] #: [id number] [place]
[2017-06-27 06:51] LABS: BUN/Creatinine Ratio 31.6 (8-20); Calcium 8.8 mg/dL (8.6-10.3); EGFR African American 61.5 (>60); EGFR Non-African American 47.8 (>60); Potassium 4.1 mmol/L (3.5-5.0)
[2017-06-27] MEDS: Metoprolol Tartrate TAB* 25 MG PO SCH (07:24)
[2017-06-27] MEDS: glipiZIDE TAB* 5 MG PO SCH (07:24)
[2017-06-27] MEDS: Lisinopril TAB* 5 MG PO SCH (07:24)
[2017-06-27] MEDS ORDERED: Torsemide TAB* 20 MG PO SCH (09:00)
[2017-06-27 11:22] VITALS: BP 118/56
--- NOTE | 2017-06-27 14:51 | DS ---
CC: Dr. Brenden Nicole * DATE OF ADMISSION: 06/22/2017. DATE OF DISCHARGE: 06/27/2017. ADMISSION DIAGNOSIS: Right thalamic hemorrhagic stroke. SECONDARY DIAGNOSES: Diabetes mellitus, hypertension, prior left thalamic CVA in 2013, macular degeneration, GERD. DISCHARGE DIAGNOSES: Right thalamic hemorrhagic stroke, diabetes mellitus, hypertension, prior left thalamic CVA in 2013, macular degeneration, GERD. HOSPITAL COURSE: The patient is a 67-year-old woman who presented to [facility] with a chief complaint of left-sided weakness. Please see history and physical for further details. The patient was found to have a right thalamic hemorrhagic stroke. The patient was initially placed in the ICU because of concern about progression of the hemorrhage. The patient was seen in consult by Dr. Nicole of Neurology. The patient slowly improved over time. Initially it was unclear exactly what medication the patient was on. It still is not entirety certain, but we have placed the patient on a similar regimen and this can be checked out with her PCP in the future. 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 The neurologist felt it was okay to start the patient back on aspirin seven days after the stroke. She may have been on Aggrenox prior, but again this was not entirely clear. PHYSICAL EXAMINATION: On the date of discharge: Vital Signs: Temperature 98 degrees, heart rate 62 beats per minute, respiratory rate 20 breaths per minute , pulse ox 100 percent on 3.5 liters, blood pressure 118/56. HEENT: Normocephalic, atraumatic. Pupils equal, round and reactive to light. Moist mucus membranes. Neck supple. No JVD, bruits, palpable thyroid, lymphadenopathy. Chest is clear to auscultation and percussion bilaterally. Cardiovascular exam: S1, S2 appreciated. Regular rate and rhythm. Abdominal exam: Positive bowel sounds in all four quadrants, soft, nontender, nondistended. Extremities: No cyanosis, clubbing or edema. Neuro: Mild dysarthria. Moves all extremities. Gait not tested, but apparently is a two person assist at this time. No facial droop. Skin: No distinct rashes or abnormalities. STUDIES DONE WHILE IN THE HOSPITAL: 1. Chest x-ray, 06/22/2017: Impression: Negative examination. 2. Brain CT, 06/22/2017: Impression: 1.3 cm focus of right thalamic hemorrhage. 3. Head CTA, 06/22/2017: Impression: 70% diameter stenosis right internal carotid artery. No evidence of aneurysm, vascular formation, or abnormal enhancement in the immediate period following right thalamic hemorrhage. 1.3 cm focus of right thalamic hemorrhage. 4. Transthoracic echocardiogram, 06/23/2017: Impression: Moderately decreased left ventricular systolic function. Estimated ejection fraction is 35 to 40 percent. Focal wall motion abnormality present. Mid anterior and apical inferior wall segments are hypokinetic. Apical anterior wall segment is akinetic. No evidence of aortic stenosis. Mild mitral regurgitation. Mild to moderate tricuspid regurgitation. Evidence of mild to moderate pulmonary hypertension. No significant pericardial effusion. 5. Brain CT, 06/23/2017: Impression: There is no change in the hyperdense focus identified at the right thalamus, most consistent with intraparenchymal hemorrhage. A less likely diagnostic consideration would be a metastatic focus. As clinically warranted, further characterization can be made with MRI of the brain. 6. Chest CTA, 06/24/2017: Impression: No CT evidence of acute pulmonary embolic disease. Nonspecific nodular opacities in the right middle lobe. Mediastinal lymphadenopathy. Moderate-sized pleural effusions. 7. Brain MRI, 06/24/2017: Impression: Again noted is a right thalamic hemorrhage. There are punctate foci of restricted diffusion within the right precentral gyrus system with subacute nonhemorrhagic infarct. The differential for the right thalamic hemorrhage includes hypertensive hemorrhage, which is supported by the location and the presence of remote hemorrhage in the basal ganglia elsewhere. The differential is hemorrhagic conversion of an infarct which is supported by the presence of a nonhemorrhagic infarct elsewhere in the same vascular territory. Hemorrhagic metastasis is also, but considered less likely in the absence of known malignancy. Hemorrhage secondary to high flow vascular malformation is not supported given the negative CTA; however, a slow flow vascular malformation, such as a cavernous angioma, is within the differential. Evidence of chronic small vessel ischemic change with multiple chronic lacunar infarcts. 8. Chest x-ray, 06/26/2017: Impression: In the correct clinical setting, chest x- ray findings are most consistent with exacerbation of CHF with small bibasilar pleural effusions. DISCHARGE MEDICATIONS: 1. Metformin 850 twice daily, this is decreased from three times a day as we have added Glipizide. 2. Glipizide 2.5 mg twice daily. 3. Torsemide 20 mg daily. 4. MiraLax 17 gm at bedtime as needed. 5. Omeprazole 20 mg a day. 6. Multivitamin one tablet a day. 7. Metoprolol Tartrate 12.5 mg twice a day. 8. Lisinopril 2.5 mg daily. 9. Gemfibrozil 600 mg twice a day. 10. Zetia 10 mg daily. 11. Aspirin 81 mg daily to be started 06/30/2017. DISCHARGE PLAN: The patient to be discharged to short-term rehab. The patient should return to the ED if symptoms recur. The patient should follow-up with her PCP and Neurology within one to two weeks. Over 45 minutes were spent on this discharge, more than 25 minutes were spent in direct [id number] contact with the patient in evaluation, physical exam, counseling, and coordination of care. [id number]/[facility] #: [id number] CASSIDY
--- NOTE | 2017-06-28 03:04 | PN ---
PROGRESS REPORT: DATE OF SERVICE: 06/27/17 LOCATION: She is currently in room 431, bed 1. SUBJECTIVE: She has had no new neurologic complaints overnight. She continues to have some numbness in the left hand and some weakness in the left arm; otherwise, feels about the same. Her shortness of breath is improved with the diuretic. She did report to Dr. Beltrán that she had problems with CHF in the past. Most recent echocardiogram showed an ejection fraction of 35% to 40%. Otherwise, she is eating well, she is having no headache, no vision changes. She feels better. She would like to go home today. I told her that this might not be possible depending on how she is doing. OBJECTIVE: Vital signs have been stable. Blood pressures in the 120s to 140s range, diastolics in the 50s to 70s. Current temperature is 97.4. She has been afebrile. Pulse rate of 67, respiratory rate of 20, pulse ox 98% to 100%. In general, she is a well-nourished, well-developed female sitting on her hospital bed. She is eating breakfast. She is pleasant. HEENT: She is normocephalic, atraumatic. Sclerae anicteric. Mucous membranes are moist. Oropharynx is clear. Neck is supple. Chest: Clear to auscultation bilaterally. Cardiovascular: Regular rate and rhythm. Abdomen is nontender. Extremities: No edema is present. On neurologic exam, awake, alert, and oriented x3. Speech is fluent with some mild dysarthria. No change. Cranial Nerves: Pupils are equal, round, and reactive to light. Visual roper are full. Extraocular muscles are intact. No diplopia. Face is symmetric. Facial sensation is intact. Tongue is midline. Hearing is intact. Palate rises symmetrically. She is moving extremities antigravity. She continues to have drift in the left upper extremity. In general 4+/5 proximally and distally in the left upper extremity; otherwise, she is 5/5 throughout. Sensation: She states diminished on the left hand. No changes. Otherwise intact to light touch and pinprick. She is ambulating with assistance. I did not walk her this morning. DIAGNOSTIC STUDIES/LAB DATA: This morning, chloride of 100, BUN of 36, creatinine of 1.14, glucose of 126. Her glucose has ranged from 59 to 133. Calcium 8.8. Methylmalonic acid is 0.34. ASSESSMENT AND PLAN: 1. Ms. Cortes is a 67-year-old female who presented with a right thalamic stroke, hemorrhagic in nature. Neurologically continues to do well, continues to have some mild deficits in the left arm and some speech deficits as well. We continue to hold aspirin x7 days after her event. I would continue to normalize blood pressure and keep it around 120 to 130/80s if possible. 2. Start statin at discharge, Crestor 20 mg a day. 3. Continue blood sugar control. 4. Continue speech therapy. 5. Nonsmoker. 6. History of congestive heart failure with some shortness of breath. Dr. Beltrán is working with her on fluid diuresis and she seems to be improved. She states that her shortness of breath is much improved. [facility] I will sign out to him and discuss the case. [id number]/[facility] #: [id number] MTDD
== END 2017-06-27 13:32 | DRG 65 ==
LOC: ED 04:41 → ICU 06:00 → MEDTELE 06-23 16:50
PROVIDERS: ADMIT Internal Medicine; ATTEND Internal Medicine
DX: I62.9 Nontraumatic intracranial hemorrhage, unspecified (principal); G81.94 Hemiplegia, unspecified affecting left nondominant side; I42.9 Cardiomyopathy, unspecified; I27.2 Other secondary pulmonary hypertension; I11.0 Hypertensive heart disease with heart failure; E83.52 Hypercalcemia; I50.9 Heart failure, unspecified; I08.1 Rheumatic disorders of both mitral and tricuspid valves; K21.9 Gastro-esophageal reflux disease without esophagitis; H35.30 Unspecified macular degeneration; I65.21 Occlusion and stenosis of right carotid artery; Z79.82 Long term (current) use of aspirin; Z79.84 Long term (current) use of oral hypoglycemic drugs; E11.319 Type 2 diabetes mellitus with unspecified diabetic retinopathy without macular edema; Z90.710 Acquired absence of both cervix and uterus; Z98.42 Cataract extraction status, left eye; Z98.41 Cataract extraction status, right eye; Z82.49 Family history of ischemic heart disease and other diseases of the circulatory system; Z82.0 Family history of epilepsy and other diseases of the nervous system; Z87.442 Personal history of urinary calculi; R29.703 NIHSS score 3; R20.0 Anesthesia of skin; R47.1 Dysarthria and anarthria; K59.00 Constipation, unspecified; R06.02 Shortness of breath
CPT/HCPCS: 36415; 36600; 70450; 70496; 70498; 70551; 71010; 71020; 71275; 80048; 80053; 80061; 82306; 82330; 82607; 82746; 82803; 83605; 83921; 83970; 84439; 84443; 84484; 85025; 85610; 85730; 86038; 86850; 86900; 86901; 87641; 93005; 93306; 94760; A9270-GY; J1940; J3420; Q9967